=== PATIENT | female | born 1965 | race Caucasian/White ===

== ENCOUNTER 2020-10-23 09:16 | Day surgery (SDC) | payer OTHER, SELFPAY ==
[2020-10-17 15:06] VITALS: BMI 34.8
--- NOTE | 2020-10-20 09:54 | HO.ANESPROP2 ---
HPI - Anesthesia Eval Consult details Narrative: 55yo F for Colonoscopy PMFSH Past Medical History Medical History Asthma HTN (hypertension) Hx of benign breast biopsy Hyperlipidemia Obese Smoker Urinary incontinence Surgical History Surgical History Hx of colonoscopy Hx of tubal ligation Social History Social History Smoking Status: Current every day smoker Packs Per Day: 0.75 Cigarettes Per Day: 15.0 Advance Directives: No Advance Directives Information Provided: No Advance Directives on File: No Meds Allergies Allergy/AdvReac Type Severity Reaction Status Date / Time Sulfa (Sulfonamide Allergy Intermediate HIVES Verified 10/23/20 09:48 Antibiotics) [SULFA (SULFONAMIDE ANTIBIOTICS)] Home Medications Medication Instructions Recorded Confirmed Type albuterol sulfate 2 puff PO Q6H PRN 09/21/20 10/17/20 History atorvastatin 1 tab PO DAILY 09/21/20 10/17/20 History lisinopril 1 tab PO DAILY 09/21/20 10/17/20 History mometasone [Asmanex Twisthaler] 1 puff INHALATION DAILY 09/21/20 10/17/20 History umeclidinium-vilanterol [Anoro 1 puff INHALATION DAILY 09/21/20 10/17/20 History Ellipta] Exam Exam Date and Time: October 20, 2020 0954 Height,Weight and Vital Signs: Height 5 ft 4.5 in Weight 93.44 kg Pertinent Lab Results Pertinent Lab Results: Laboratory Tests 01/15/20 07/25/20 08:12 09:32 WBC 6.2 Hgb 15.2 Hct 45.0 Plt Count 211 Sodium 141 Potassium 4.0 Chloride 106 BUN 12 Creatinine 0.81 Assessment and Plan Assessment Anesthesia Assessment: Chart Reviewed
[2020-10-23 09:42] VITALS: BP 135/81; PULSE 98; RESP 18; TEMP 36; O2SAT 97
[2020-10-23] MEDS: Lactated Ringers 1,000 ML 100 ML IVCONT (09:51)
[2020-10-23 11:03] VITALS: BP 120/65; PULSE 77; RESP 16; TEMP 36.1; O2SAT 99
--- NOTE | 2020-10-23 11:03 | PM.OP ---
Brief Operative Note Date of Service: 10/23/20 Pre-op diagnosis: Screening, Hx of colon polyps Procedure: Colonoscopy to the cecum and TI with biopsy and removal of polyps Surgeon: Zane Reese Anesthesia: MAC Estimated blood loss (mL): 3.0 Pathology: other (A. Ascending colon polyps B. Sigmoid colon polyps C. Rectal polyps) Condition: stable Disposition: PACU
[2020-10-23 11:18] VITALS: BP 123/69; PULSE 71; RESP 16; O2SAT 99
[2020-10-23 11:33] VITALS: BP 112/76; PULSE 99; RESP 16; TEMP 36.1; O2SAT 99
--- NOTE | 2020-10-23 13:51 | HO.POSTANES ---
Post Anesthesia Evaluation Post Anesthesia Evaluation Vital Signs: Vital Signs Temp Pulse Resp BP Pulse Ox 10/23/20 11:33 97.0 F 99 16 112/76 99 10/23/20 11:18 71 16 123/69 99 10/23/20 11:03 97 F 77 16 120/65 99 10/23/20 09:42 96.8 F 98 18 135/81 97 Anesthesia: Monitored Mental Status: Awake Pain Control: Satisfactory Nausea/Vomiting: None Hydration: Adequate Anesthesia-Related Issues: No Anes. Related Issues
--- NOTE | 2020-10-23 21:09 | OP_ITS ---
SURGEON: Zane Reese MD INDICATIONS: The patient presents for evaluation of colorectal cancer screening and personal history of tubular adenoma of the colon. Full consent has been obtained from her from her for this, including risks of bleeding and perforation. PREOPERATIVE DIAGNOSIS: Colorectal cancer screening and personal history of tubular adenoma of the colon. POSTOPERATIVE DIAGNOSIS: Colorectal cancer screening and personal history of tubular adenoma of the colon, small colon polyps, diverticulosis, and internal hemorrhoids. PROCEDURE PERFORMED: Colonoscopy to the cecum and terminal ileum with biopsy and removal of polyps. ESTIMATED BLOOD LOSS: COMPLICATIONS: ANESTHESIA: Monitored anesthesia care. ASSISTANTS: SPECIMENS: DESCRIPTION OF PROCEDURE: The patient was placed in the left lateral decubitus position. The digital rectal exam revealed no abnormalities. The Olympus video pediatric colonoscope was entered into the rectum and advanced easily to the cecum. Once in the cecum I did identify normal-appearing cecal pouch with appendiceal orifice and a normal-appearing ileocecal valve. The terminal ileum was cannulated and appeared normal. The scope was withdrawn back in the colon. The entire cecum and ileocecal valve appeared normal. The scope was slowly withdrawn assessing all mucosal surfaces carefully. Preparation was excellent. In the ascending colon, sigmoid colon, and rectum were multiple flat, less than 5 mm possible hyperplastic polyps which were all biopsied and completely removed with cold biopsy forceps. There were some similar polyps in the rectum and sigmoid, which were not biopsied due to multiple number of them, but again they all appeared to be hyperplastic. There was a mild amount of sigmoid diverticulosis. I did not visualize any other polyps, colitis, nor angiodysplasia. In the rectum, scope was retroflexed visualizing internal hemorrhoids, but no other pathology. The rectal mucosa appeared normal. The scope was straightened and withdrawn from the patient. She tolerated procedure well and was returned to the recovery area in stable condition. IMPRESSION: 1. Small colon polyps, status post biopsy removal. 2. Diverticulosis. 3. Internal hemorrhoids. PLAN: The results of biopsy will be checked. I would recommend a repeat colonoscopy in 5 years for further surveillance. She will otherwise see me on a p.r.n. basis. MD LISA Zapata/JUANITA / [id number]
== END 2020-10-23 12:05 | disposition home or self-care (01) ==
PROVIDERS: PCP Internal Medicine; Visit Provider Internal Medicine
PROC: 0DJD8ZZ Inspection of Lower Intestinal Tract, Via Natural or Artificial Opening Endoscopic (ICD-10-PCS; CPT 45378; principal; 2020-10-23 10:40)
DX: Z12.11 Encounter for screening for malignant neoplasm of colon (principal); D12.2 Benign neoplasm of ascending colon; K63.5 Polyp of colon; K62.1 Rectal polyp; K57.30 Diverticulosis of large intestine without perforation or abscess without bleeding; K64.8 Other hemorrhoids; Z86.010 Personal history of colon polyps
CPT/HCPCS: 45380; 88305

== ENCOUNTER 2021-03-17 08:46 | Outpatient (REF) | payer OTHER, SELFPAY ==
[2021-03-17 14:00] LABS: Glucose Urine UA NEG (NEG); Leukocyte Esterase Urine NEG (NEG); Nitrite Urine NEG (NEG); PH 6.5 (5.0-8.0); Urine Blood 1+ (NEG); Urine Ketones NEG (NEG); Urine Protein NEG (NEG-TRACE)
[2021-03-17 14:01] LABS: Appearance Urine HAZY; Color Urine YELLOW; Hematocrit 45.1 % (37-47); Hemoglobin 14.6 g/dl (12.0-16.0); Mean Corpuscular HGB Conc 32.4 g/dl (31.0-35.0); Mean Corpuscular Hemoglobin 33.1 pg (27.0-33.0); Mean Corpuscular Volume 102.3 fL (80-98); Mean Platelet Volume 9.7 fL (9.4-12.3); Platelet Count 235 X10*3/uL (160-400); Red Blood Count 4.41 X10*6/uL (4.20-5.50); Red Cell Distribution Width 12.6 % (11.0-16.0); White Blood Count 5.9 X10*3/uL (4.8-10.8)
[2021-03-17 14:09] LABS: Bacteria Urine 4+ /LPF; Squamous Epithelial Cell Urine 4+ /LPF
[2021-03-17 14:23] LABS: Alanine Aminotransferase 20 U/L (0-31); Albumin Level 4.2 g/dL (3.5-5.0); Alkaline Phosphatase 104 U/L (39-117); Anion Gap 13 (12-20); Aspartate Amino Transferase 14 U/L (5-31); Bilirubin Total 0.6 mg/dL (0.0-1.0); Blood Urea Nitrogen 11 mg/dL (9-16); Calcium 9.1 mg/dL (8.4-10.2); Carbon Dioxide 28 mmol/L (22-29); Chloride 106 mmol/L (96-108); Cholesterol 166 mg/dL; Estimated Glomerular Filt Rate > 60; Glucose Fasting 94 mg/dL (60-99); HDL Cholesterol 57 mg/dL; LDL Cholesterol Calculated 88 mg/dl; Potassium 4.7 mmol/L (3.3-5.1); Sodium 142 mmol/L (135-145); Total Protein 6.8 g/dL (6.5-8.0); Triglycerides 105 mg/dL
[2021-03-17 14:44] LABS: Thyroid Stimulating Hormone 0.97 uIU/mL (0.32-4.0)
== END 2021-03-17 08:47 | disposition home or self-care (01) ==
LOC: HO.HMGCLDS 08:46
PROVIDERS: PCP Internal Medicine; Visit Provider Internal Medicine
DX: E78.2 Mixed hyperlipidemia (principal); I10 Essential (primary) hypertension; J42 Unspecified chronic bronchitis
CPT/HCPCS: 36415; 80053; 80061; 81001; 81003; 83735; 84443; 85027

== ENCOUNTER 2021-03-27 08:56 | Outpatient (REF) | payer OTHER, SELFPAY ==
[2021-03-27 11:20] LABS: Urine Cytology See Pathology rpt
[2021-03-27 11:43] LABS: Glucose Urine UA NEG (NEG); Leukocyte Esterase Urine NEG (NEG); Nitrite Urine NEG (NEG); PH 5.5 (5.0-8.0); Specific Gravity - Urine 1.025 (1.005-1.025); Urine Blood 1+ (NEG); Urine Ketones NEG (NEG); Urine Protein NEG (NEG-TRACE)
[2021-03-27 11:44] LABS: Appearance Urine CLEAR; Color Urine YELLOW
[2021-03-27 12:02] LABS: Bacteria Urine 1+ /LPF; Squamous Epithelial Cell Urine 1+ /LPF
[2021-03-30 12:36] LABS: HPV mRNA E6/E7 Not Detected (Not Detected)
== END 2021-03-27 08:57 | disposition home or self-care (01) ==
LOC: HO.LAB 08:56
PROVIDERS: Visit Provider Internal Medicine
DX: Z12.4 Encounter for screening for malignant neoplasm of cervix (principal); Z11.51 Encounter for screening for human papillomavirus (HPV); R87.610 Atypical squamous cells of undetermined significance on cytologic smear of cervix (ASC-US); I10 Essential (primary) hypertension; R31.29 Other microscopic hematuria
CPT/HCPCS: 81001; 87624; 88112; 88142

== ENCOUNTER 2021-04-19 09:56 | Outpatient (REF) | payer OTHER, SELFPAY ==
--- NOTE | ~2021-04-19 | US_ITS ---
EXAMINATION: US RETROPERITONEAL COMPLETE (RENAL) CLINICAL INFORMATION: Other microscopic hematuria. COMPARISON: None TECHNIQUE: Real-time imaging of the kidneys and bladder. FINDINGS: RIGHT KIDNEY: 10.1 x 4.5 x 5.7 cm (SAG x AP x TRV). The kidney is normal in size, contour, and echogenicity. Renal cortical thickness is normal. No calculi or focal parenchymal lesions. No hydronephrosis. LEFT KIDNEY: 10.7 x 5.1 x 5.1 cm (SAG x AP x TRV). The kidney is normal in size, contour, and echogenicity. Renal cortical thickness is normal. No calculi or focal parenchymal lesions. No hydronephrosis. BLADDER: Well distended and normal. Bilateral ureteral jets are demonstrated. Prevoid bladder volume is 170 mL. Postvoid bladder volume is 4.5 mL. The liver appears echogenic. US/US retroperitoneal comp IMPRESSION: Unremarkable renal and bladder ultrasound.
--- NOTE | ~2021-04-19 | CT_ITS ---
EXAMINATION: CT CHEST SCREENING CLINICAL INFORMATION: Personal history of nicotine dependence. COMPARISON: Chest x-ray 10/02/2018. TECHNIQUE: Multidetector volumetric CT imaging of the chest is performed without contrast using low dose technique. Additional 2D coronal and sagittal reformatted images and axial 3D maximum intensity projection (MIP) images are generated on the CT workstation. This CT examination was performed using dose optimization techniques as appropriate, variously including the following: *Automated exposure control *Adjustment of mA and/or kV according to patient size (this includes techniques or standardized protocols for targeted exams where dose is matched to indication/reason for exam; i.e. extremities or head) *Use of iterative reconstruction technique DLP: 63 mGy-cm FINDINGS: LUNGS: The lungs are clear with no evidence of inflammation or nodules. There is a punctate 2 mm calcified nodule right lower lobe axial image 91/9. No additional nodule seen. There is no consolidation, mass or ground-glass density. MEDIASTINUM: The thyroid lobes are symmetrical and normal. The central trachea and the bronchi are widely patent. The heart size and great vessels are normal caliber. There are minimal coronary artery calcifications. There is no pericardial effusion. PLEURA: There is no pleural effusion. No pleural mass or thickening. AXILLA: There are small shotty lymph nodes seen in the axilla. The chest wall is unremarkable. UPPER ABDOMEN: Visualized liver, spleen, pancreas and bilateral adrenal glands are unremarkable. OSSEOUS STRUCTURES: No lytic or sclerotic process seen. There is mild ventral spondylosis. CT/CT lung screening IMPRESSION: Punctate 2 mm calcified nodule right lower lobe. No additional nodule seen. ASSESSMENT: Lung-RADS category 2: Benign RECOMMENDATION: Low dose annual CT chest.
== END 2021-04-19 09:57 | disposition home or self-care (01) ==
LOC: HO.US 09:56
PROVIDERS: Visit Provider Internal Medicine
DX: Z12.2 Encounter for screening for malignant neoplasm of respiratory organs (principal); R31.29 Other microscopic hematuria; Z87.891 Personal history of nicotine dependence
CPT/HCPCS: 71271; 76770

== ENCOUNTER 2021-07-22 08:17 | Emergency (ER) | payer OTHER, SELFPAY ==
--- NOTE | ~2021-07-22 | CT_ITS ---
EXAMINATION: CT LUMBAR SPINE WITHOUT CONTRAST CLINICAL INFORMATION: 56-year-old female with worsening lower back pain. COMPARISON: Chest CT from 04/19/2021. TECHNIQUE: Noncontrast multidetector CT imaging examination of the lumbar spine. Axial images are presented at 1.5 mm and 2 mm slice thickness. Coronal and sagittal reformatted images were generated and reviewed. This CT examination was performed using dose optimization techniques as appropriate, variously including the following: *Automated exposure control *Adjustment of mA and/or kV according to patient size (this includes techniques or standardized protocols for targeted exams where dose is matched to indication/reason for exam; i.e. extremities or head) *Use of iterative reconstruction technique DLP; 748 mGy-cm FINDINGS: No acute imaging abnormalities in the the examined lumbosacral spine. No vertebral compression fracture. No pars interarticularis defects. T12-L1 disc space is well-preserved. L1-L2, mild disc bulge. No significant narrowing of the spinal canal or neural foramina at this level. L2-L3, moderate loss of disc height, disc bulge, vacuum disc phenomenon, endplate sclerosis, vertebral osteophyte formation, and 0.3 cm of retrolisthesis of L2 on L3. The bulging disc produces mild indentation on the ventral surface of the thecal sac, causes mild canal stenosis and mild bilateral foraminal stenosis. No evidence of disc impingement upon the exiting L2 nerve roots. L3-L4, mild loss of disc height, mild disc bulge and approximately 0.2 cm of retrolisthesis of L3 on L4 resulting in mild narrowing of the central spinal canal. No significant narrowing of the neural foramina. L4-L5 and L5-S1 intervertebral disc spaces are maintained. Mild disc bulge at L4-L5 produces mild indentation on the ventral surface of the thecal sac. No significant narrowing of the spinal canal or foramina at the L4-L5 and L5-S1 levels. Moderate right-sided facet hypertrophy is noted at L5-S1. Sacrum and sacroiliac joints are intact. No sacral fracture. No focal lytic or osteoblastic lesion. The paraspinal soft tissues are normal. The visualized abdominal aorta has atherosclerotic calcification; no aneurysm or para-aortic lymphadenopathy. The kidneys are unremarkable; no nephrolithiasis or hydronephrosis. CT/CT lumbar spine wo con IMPRESSION: * No acute CT imaging abnormalities in the lumbosacral spine. No vertebral compression fractures. * Degenerative loss of disc height is moderate at L2-L3 and mild at L3-L4. There is mild retrolisthesis at L2-L3 and L3-L4. Otherwise, the lumbar vertebra have normal alignment. There is mild narrowing of the central spinal canal at L2-L3 and L3-L4. No evidence of high-grade canal stenosis or significant neural foraminal stenosis.
[2021-07-22 08:35] VITALS: BP 152/80; PULSE 69; RESP 18; TEMP 36.4; BMI 33.3
[2021-07-22] MEDS: Ketorolac Tromethamine 15 MG/ML VIAL 30 MG IM (09:08)
[2021-07-22] MEDS: Lidocaine 4 % Patch ADH..PATCH 1 PATCH TRANSDERMA (09:08)
[2021-07-22] MEDS: diazePAM 5 MG TABLET PO (09:09)
[2021-07-22 09:44] LABS: MANUAL DIFF FLAG NO
[2021-07-22 09:45] LABS: Basophils Percent Auto 0.4 % (0-2); Eosinophils Absolute Auto 0.1 X10*3/uL (0.0-0.4); Eosinophils Percent Auto 1.9 % (0-4); Hemoglobin 13.5 g/dl (12.0-16.0); Imm Gran Abs Auto 0.01 X10*3/uL (0.00-0.03); Imm Gran Pct Auto 0.1 % (0.0-0.4); Lymphocytes Absolute Auto 2.3 X10*3/uL (1.2-4.9); Lymphocytes Percent Auto 32.5 % (20-40); Mean Corpuscular HGB Conc 32.9 g/dl (31.0-35.0); Mean Corpuscular Volume 100.2 fL (80-98); Mean Platelet Volume 9.4 fL (9.4-12.3); Monocytes Absolute Auto 0.6 X10*3/uL (0.1-1.2); Monocytes Percent Auto 9.2 % (2-11); Neutrophils Absolute Auto 3.9 X10*3/uL (2.0-8.3); Neutrophils Percent Auto 55.9 % (45-73); Platelet Count 198 X10*3/uL (160-400); Red Blood Count 4.09 X10*6/uL (4.20-5.50); Red Cell Distribution Width 12.1 % (11.0-16.0)
[2021-07-22 09:52] LABS: Prothrombin Time 11.8 SEC (9.9-13.0)
[2021-07-22 10:02] LABS: Alanine Aminotransferase 16 U/L (0-31); Alkaline Phosphatase 93 U/L (39-117); Anion Gap 9 (12-20); Aspartate Amino Transferase 13 U/L (5-31); Bilirubin Total 0.4 mg/dL (0.0-1.0); Blood Urea Nitrogen 12 mg/dL (9-16); Calcium 9.6 mg/dL (8.4-10.2); Carbon Dioxide 26 mmol/L (22-29); Chloride 107 mmol/L (96-108); Creatinine Clr Calc Pharmacy 82.2; Estimated Glomerular Filt Rate > 60; Glucose Random 93 mg/dL (60-115); Magnesium 1.9 mg/dL (1.6-2.6); Potassium 4.3 mmol/L (3.3-5.1); Sodium 138 mmol/L (135-145); Total Protein 6.6 g/dL (6.5-8.0)
[2021-07-22 10:23] LABS: Influenza A PCR NEGATIVE (Negative); Influenza B PCR NEGATIVE (Negative); Resp Syncy Virus RNA Qual PCR NEGATIVE (Negative); SARS COV2 PCR INHOUSE NEGATIVE (Negative)
[2021-07-22 10:35] LABS: Appearance Urine HAZY; Color Urine YELLOW; Glucose Urine UA NEG (NEG); Leukocyte Esterase Urine NEG (NEG); Nitrite Urine POS (NEG); PH 5.5 (5.0-8.0); UACC Culture Trigger YES; Urine Blood 1+ (NEG); Urine Ketones NEG (NEG); Urine Protein NEG (NEG-TRACE)
--- NOTE | 2021-07-22 10:39 | ED_ITS ---
HPI - Back Pain/Injury General Chief Complaint: Back Pain/Injury Stated Complaint: back pain Time Seen by Provider: 07/22/21 08:32 Source: patient and family Mode of arrival: ambulatory Limitations: no limitations History of Present Illness HPI Narrative: 56-year-old female with a past medical history of obesity, hy pertension, hyperlipidemia, asthma, COPD, micro hematuria in urine and chronic back pain of unknown etiology presenting to the ED with complaints of acute on chronic back pain for the past week progressively worsening. She reports that she works at a [employer] and she feels like the past few days after work her back is in worsening pain. She reports that she has had 2 primary care providers in the past 10-20 years and she has told them about her back pain although she has never had any x-rays or CT scans or MRIs. She reports that she has had chronic right thigh numbness/burning sensation although this has been present for at least 5-10 years and she has told her primary care provider's a lthough they have never done any imaging-discussed above. She denies any fevers, chills, dizziness, headaches, chest pain, shortness of breath, palpitations, dyspnea exertion, orthopnea, radiation of the back pain, hematuria, black or bloody stools, dysuria, abnormal vaginal discharge, any weakness any trouble walking or any other symptoms complaints or concerns or recent injuries or falls. MD elicited complaint: back pain Pertinent past history: prior back pain Onset (ago): week(s) (For the past week worse today) Timing: constant and progressively worsening Severity: severe Pain scale (0-10): 10 Similar Symptoms Previously: Yes Quality: burning, aching, spasming and throbbing Location: lumbar spine Radiation: none Exacerbating factors: movement, walking and lifting Relieving factors: immobilization Context: while lifting, turning/twisting and bending Associated symptoms: denies other symptoms Treatments prior to arrival: NSAIDS and acetaminophen Work related injury: No Related Data Home Medications Medication Instructions Recorded Confirmed mometasone (Asmanex Twisthaler) 1 puff INHALATION DAILY 09/21/20 03/27/21 Previous Rx's Medication Instructions Recorded atorvastatin 40 mg tablet 40 mg PO DAILY #90 tab 11/29/20 lisinopril 5 mg tablet 5 mg PO DAILY #90 tab 11/29/20 albuterol sulfate 90 mcg/actuation 2 puff PO Q6H PRN #8.5 g 06/01/21 aerosol inhaler umeclidinium 62.5 mcg-vilanterol 1 ea INHALATION DAILY #180 cap 06/18/21 25 mcg/actuation powdr for inhalation (Anoro Ellipta) cefuroxime axetil 500 mg tablet 500 mg PO BID 7 Days #14 tab 07/22/21 diazepam 5 mg tablet (Valium) 5 mg PO TID PRN #14 tab 07/22/21 lidocaine HCl 4 % topical cream 1 appl TOPICAL BID PRN #120 g 07/22/21 (Aspercreme (lidocaine HCl)) naproxen 500 mg tablet 500 mg PO BID PRN #10 tab 07/22/21 Allergies Allergy/AdvReac Type Severity Reaction Status Date / Time Sulfa (Sulfonamide Allergy Intermediate HIVES Verified 03/27/21 07:58 Antibiotics) [SULFA (SULFONAMIDE ANTIBIOTICS)] Review of Systems Review of Systems: Constitutional : No trauma, No Weight loss, No Fever, No Chills, ENT/Mouth : No Hearing loss, No Ear Pain, No Nasal Congestion, No Sinus Pain, No Hoarseness, No sore throat, No Rhinorrhea, No Swallowing Difficulty Cardiovascular : No Chest Pain, No SOB Respiratory : No Cough, No Dyspnea Gastrointestinal : No Nausea, No Vomiting, No Diarrhea, No abdominal Pain, No Hematochezia, No Melena Genitourinary : No Dysuria, No Urinary Frequency, No Hematuria, No Urinary or Bowel Incontinence/retention Musculoskeletal : Positive Back pain, No neck pain, No joint stiffness, No joint swelling Skin : No Skin Lesions, No rash or signs of infection Neuro : Positive right thigh chronic numbness/burning sensation, no additional/new numbness, No Weakness, No radiation, No Paresthesias, No headache, no loss of bowel or bladder incontinence, no saddle anesthesia, Focal weakness, No radiation Denies history of IV drug usage. Yes all other systems are reviewed and are negative [facility] Past Medical History Attestation statement: The following information was validated with the patient. Medical History Asthma COPD (chronic obstructive pulmonary disease) HTN (hypertension) Hyperlipidemia Mammogram normal Microhematuria Obese Pap smear abnormality of cervix with ASCUS favoring benign Personal history of nicotine dependence Urinary incontinence Surgical History Hx of benign breast biopsy (~2005) Hx of colonoscopy Hx of tubal ligation Family History Family History Father COPD (chronic obstructive pulmonary disease) Mother HTN (hypertension) Diabetes Social History Social History Alcohol intake: current Alcohol intake frequency: does not drink Cigarette Packs Per Day: 0.75 Cigarettes Per Day: 15.0 Years Smoked: 42 (onset 11) Advance Directives: No Advance Directives Information Provided: No Physical Exam Vital Signs: Vital Signs: Last Vital Signs Temp 97.6 F 07/22/21 08:35 Pulse 69 07/22/21 08:35 Resp 18 07/22/21 08:35 BP 152/80 H 07/22/21 08:35 Body Mass Index 33.3 vital signs have been reviewed as normal and appeared to be correct. Blood pre ssure normal. Heart rate normal. Respiration rate normal. Temperature normal. Oxygen saturation normal. Appearance: Alert. Oriented X3. No acute distress. Head: Normal external exam. Normocephalic. Atraumatic. No Yip signs noted. No raccoon eyes noted Eyes: PERRLA. EOMI. Conjunctiva and sclera normal. Eyelids normal. ENT: EAC normal. TM's Normal. Pharynx normal. Uvula midline. Moist mucous membranes. No trismus noted. No drooling noted. No muffled voice noted. Neck: Normal inspection. Neck supple. FROM. No adenopathy. Thyroid Normal. No meningeal signs. No neck mass noted. CVS: Normal heart rate and rhythm. Heart sound normal. No murmurs noted. Pulses normal throughout. Respiratory: No respiratory distress. Painless inspiration. Breath sounds norm al. No wheezes/rales/rhonchi noted. Chest nontender. No accessory muscle usage noted or decreased air movement noted. Abdomen: Soft and nontender. Bowel sounds normal in all 4 quadrants. No distenti on noted. No organomegaly noted. No visible injury noted. Back: No CVA tenderness. Full range of motion noted. No obvious deformities, or edema. Mild para-spinal muscular tenderness from lumbar region to coccyx. Full ROM in back and lower extremities. 5/5 strength hip extension/flexion, abduction , adduction. Mild Lumbar pain with hip flexion against resistance. Straight leg raise test negative on right; Straight leg raise test negative on left; Reflexes normal ankle and knee bilaterally; EHL motor strength normal bilaterally. No rashes/lesion/induration/fluctuance or signs infection noted. Skin: Skin warm and dry. Normal skin color. Normal skin turgor. No rashes/lesions/lacerations noted. Extremities: No lower extremity edema. Extremities exhibit normal range of motion. Extremities nontender. Neuro: Oriented X 3. No motor deficit. No sensory deficit. Reflexes normal. Patient has a normal steady gait. Course Course Course Narrative: Pt c likely muscular pain, but could be herniated disc. Neuro exam shows no deficits. Not c/w AAA/epidural abscess/dissection.No high risk Hx (Incont, fever, immunosupp, recent surgery/LP, coag, signif trauma, wt loss, puls mass, hx/o Ca, TB, or IVDU) to warrant MRI. Although due to patient never having imaging and having back pain for at least 20 years with right thigh numbness/burning sensation will obtain a CT scan of lumbar spine without contrast to evaluate an etiology of the patient's chronic back pain as she has never had imaging. Therefore CT scan of lumbar spine was obtained revealed multiple chronic changes therefore I printed out a copy of her results given to the patient and told her to bring that to her primary care provider so her primary care provider can refer her to pain management or physical therapy or a neurosurgeon. Not c/w Pyelo/UTI/kidney stone/spinal fx. Not cauda equina syndrome. Therefore patient was given Valium and naproxen and a Lidoderm patch and she reports moderate symptomatic relief and she reports that she would like to go home with same treatment. I explained to the patient that she also has urinary tract infection therefore was start her on an antibiotic for UTI. Otherwise all her other labs were within normal limits. She was also negative for COVID/RSV/flu. Will DC home with symptomatic treatment antibiotics for UTI and instructions return if any new or worsening symptoms follow-up with primary care provider. Patient understands agrees with this plan. MDM - Back Pain/Injury Medical Records Attestation: I reviewed the patient's medical records. Lab Data Attestation: I reviewed the patient's lab results. Result diagrams: 07/22/21 09:35 07/22/21 09:35 Labs: Lab Results 07/22/21 07/22/21 07/22/21 Range/Units 09:35 09:35 09:35 WBC 7.0 (4.8-10.8) X10*3/uL RBC 4.09 L (4.20-5.50) X10*6/uL Hgb 13.5 (12.0-16.0) g/dl Hct 41.0 (37-47) % MCV 100.2 H (80-98) fL MCH 33.0 (27.0-33.0) pg MCHC 32.9 (31.0-35.0) g/dl RDW 12.1 (11.0-16.0) % Plt Count 198 (160-400) X10*3/uL MPV 9.4 (9.4-12.3) fL Immature Gran % (Auto) 0.1 (0.0-0.4) % Neut % (Auto) 55.9 (45-73) % Lymph % (Auto) 32.5 (20-40) % Dooly % (Auto) 9.2 (2-11) % Eos % (Auto) 1.9 (0-4) % Baso % (Auto) 0.4 (0-2) % Lymph # (Auto) 2.3 (1.2-4.9) X10*3/uL Dooly # (Auto) 0.6 (0.1-1.2) X10*3/uL Eos # (Auto) 0.1 (0.0-0.4) X10*3/uL Baso # (Auto) 0.0 (0.0-0.2) X10*3/uL Abs Immat Gran (auto) 0.01 (0.00-0.03) X10*3/uL Absolute Neuts (auto) 3.9 (2.0-8.3) X10*3/uL Absolute Nucleated RBC 0.000 (0.0-0.012) X10*3/uL Nucleated RBC % (auto) 0.0 (0.0-0.2) /100WBC PT 11.8 (9.9-13.0) SEC INR 1.0 (0.9-1.1) Sodium 138 (135-145) mmol/L Potassium 4.3 (3.3-5.1) mmol/L Chloride 107 (96-108) mmol/L Carbon Dioxide 26 (22-29) mmol/L Anion Gap 9 L (12-20) BUN 12 (9-16) mg/dL Creatinine 0.83 (0.5-1.4) mg/dL Estim Creat Clear Calc 82.2 Estimated GFR > 60 Random Glucose 93 (60-115) mg/dL Calcium 9.6 (8.4-10.2) mg/dL Magnesium 1.9 (1.6-2.6) mg/dL Total Bilirubin 0.4 (0.0-1.0) mg/dL AST 13 (5-31) U/L ALT 16 (0-31) U/L Alkaline Phosphatase 93 (39-117) U/L Total Protein 6.6 (6.5-8.0) g/dL Albumin 4.0 (3.5-5.0) g/dL Urine Color Urine Appearance Urine pH (5.0-8.0) Ur Specific Snyder (1.005-1.025) Urine Protein (NEG-TRACE) MG/DL Urine Glucose (UA) (NEG) MG/DL Urine Ketones (NEG) MG/DL Urine Blood (NEG) Urine Nitrite (NEG) Ur Leukocyte Esterase (NEG) Coronavirus (PCR) (Negative) Influenza Type A (PCR) (Negative) Influenza Type B (PCR) (Negative) RSV RNA Qual (PCR) (Negative) 07/22/21 07/22/21 Range/Units 09:35 10:24 WBC (4.8-10.8) X10*3/uL RBC (4.20-5.50) X10*6/uL Hgb (12.0-16.0) g/dl Hct (37-47) % MCV (80-98) fL MCH (27.0-33.0) pg MCHC (31.0-35.0) g/dl RDW (11.0-16.0) % Plt Count (160-400) X10*3/uL MPV (9.4-12.3) fL Immature Gran % (Auto) (0.0-0.4) % Neut % (Auto) (45-73) % Lymph % (Auto) (20-40) % Dooly % (Auto) (2-11) % Eos % (Auto) (0-4) % Baso % (Auto) (0-2) % Lymph # (Auto) (1.2-4.9) X10*3/uL Dooly # (Auto) (0.1-1.2) X10*3/uL Eos # (Auto) (0.0-0.4) X10*3/uL Baso # (Auto) (0.0-0.2) X10*3/uL Abs Immat Gran (auto) (0.00-0.03) X10*3/uL Absolute Neuts (auto) (2.0-8.3) X10*3/uL Absolute Nucleated RBC (0.0-0.012) X10*3/uL Nucleated RBC % (auto) (0.0-0.2) /100WBC PT (9.9-13.0) SEC INR (0.9-1.1) Sodium (135-145) mmol/L Potassium (3.3-5.1) mmol/L Chloride (96-108) mmol/L Carbon Dioxide (22-29) mmol/L Anion Gap (12-20) BUN (9-16) mg/dL Creatinine (0.5-1.4) mg/dL Estim Creat Clear Calc Estimated GFR Random Glucose (60-115) mg/dL Calcium (8.4-10.2) mg/dL Magnesium (1.6-2.6) mg/dL Total Bilirubin (0.0-1.0) mg/dL AST (5-31) U/L ALT (0-31) U/L Alkaline Phosphatase (39-117) U/L Total Protein (6.5-8.0) g/dL Albumin (3.5-5.0) g/dL Urine Color YELLOW Urine Appearance HAZY Urine pH 5.5 (5.0-8.0) Ur Specific Snyder 1.010 (1.005-1.025) Urine Protein NEG (NEG-TRACE) MG/DL Urine Glucose (UA) NEG (NEG) MG/DL Urine Ketones NEG (NEG) MG/DL Urine Blood 1+ H (NEG) Urine Nitrite POS H (NEG) Ur Leukocyte Esterase NEG (NEG) Coronavirus (PCR) NEGATIVE (Negative) Influenza Type A (PCR) NEGATIVE (Negative) Influenza Type B (PCR) NEGATIVE (Negative) RSV RNA Qual (PCR) NEGATIVE (Negative) Imaging Data Lumbar spine CT scan without contrast: Attestation: I personally reviewed and interpreted this imaging study as follows: Radiologist's impression: FINDINGS: No acute imaging abnormalities in the the examined lumbosacral spine. No vertebral compression fracture. No pars interarticularis defects. T12-L1 disc space is well-preserved. L1-L2, mild disc bulge. No significant narrowing of the spinal canal or neural foramina at this level. L2-L3, moderate loss of disc height, disc bulge, vacuum disc phenomenon, endplate sclerosis, vertebral osteophyte formation, and 0.3 cm of retrolisthesis of L2 on L3. The bulging disc produces mild indentation on the ventral surface of the thecal sac, causes mild canal stenosis and mild bilateral foraminal stenosis. No evidence of disc impingement upon the exiting L2 nerve roots. L3-L4, mild loss of disc height, mild disc bulge and approximately 0.2 cm of retrolisthesis of L3 on L4 resulting in mild narrowing of the central spinal canal. No significant narrowing of the neural foramina. L4-L5 and L5-S1 intervertebral disc spaces are maintained. Mild disc bulge at L4-L5 produces mild indentation on the ventral surface of the thecal sac. No significant narrowing of the spinal canal or foramina at the L4-L5 and L5-S1 levels. Moderate right-sided facet hypertrophy is noted at L5-S1. Sacrum and sacroiliac joints are intact. No sacral fracture. No focal lytic or osteoblastic lesion. The paraspinal soft tissues are normal. The visualized abdominal aorta has atherosclerotic calcification; no aneurysm or para-aortic lymphadenopathy. The kidneys are unremarkable; no nephrolithiasis or hydronephrosis. CT/CT lumbar spine wo con IMPRESSION: *? No acute CT imaging abnormalities in the lumbosacral spine. No vertebral compression fractures. *? Degenerative loss of disc height is moderate at L2-L3 and mild at L3-L4. There is mild retrolisthesis at L2-L3 and L3-L4. Otherwise, the lumbar vertebra have normal alignment. There is mild narrowing of the central spinal canal at L2-L3 and L3-L4. No evidence of high-grade canal stenosis or significant neural foraminal stenosis. Discharge Plan Discharge Clinical Impression: Microhematuria, UTI (urinary tract infection), Retrolisthesis of vertebrae, Bulging lumbar disc, Back pain Patient Disposition: Home, Self-Care Instructions: Hematuria (ED), Back Pain (ED), Spondylolisthesis (ED), Urinary Tract Infection in Older Adults (ED) Prescriptions: New diazepam [Valium] 5 mg tablet 5 mg PO TID PRN (Reason: muscle spasm) Qty: 14 RF: 0 lidocaine HCl [Aspercreme (lidocaine HCl)] 4 % cream 1 appl topical BID PRN (Reason: pain) Qty: 120 RF: 0 naproxen 500 mg tablet 500 mg PO BID PRN (Reason: pain) Qty: 10 RF: 0 cefuroxime axetil 500 mg tablet 500 mg PO BID 7 Days Qty: 14 RF: 0 No Action atorvastatin 40 mg tablet 40 mg PO DAILY Qty: 90 RF: 2 lisinopril 5 mg tablet 5 mg PO DAILY Qty: 90 RF: 3 albuterol sulfate 90 mcg/actuation HFA aerosol inhaler 2 puff PO Q6H PRN (Reason: Wheezing) Qty: 8.5 RF: 5 Anoro Ellipta 62.5-25 mcg/actuation blister with device 1 ea inhalation DAILY Qty: 180 RF: 3 Asmanex Twisthaler 110 mcg/ actuation (30) aerosol powdr breath activated 1 puff inhalation DAILY RF: 0 Referrals: Susan Gusman MD [Primary Care Provider] - 2 days Stand Alone Forms: Work/School Release Print Language: Korean
[2021-07-22 10:50] LABS: Bacteria Urine 2+ /LPF; WBC Urine 0-2 /HPF (0-4)
[2021-07-22 10:51] LABS: RBC Urine 0 /HPF (0); Squamous Epithelial Cell Urine 1+ /LPF
[2021-07-22 11:25] VITALS: BP 133/66; PULSE 110; RESP 19; O2SAT 98
== END 2021-07-22 11:28 | disposition home or self-care (01) ==
PROVIDERS: Physician Assistant Medical; Emergency Provider Emergency Medicine; PCP Internal Medicine
DX: R31.9 Hematuria, unspecified (principal); N39.0 Urinary tract infection, site not specified; M43.19 Spondylolisthesis, multiple sites in spine; M54.5 Low back pain; F17.210 Nicotine dependence, cigarettes, uncomplicated; Z20.822 Contact with and (suspected) exposure to COVID-19; Z71.6 Tobacco abuse counseling; Z79.899 Other long term (current) drug therapy
CPT/HCPCS: 0241U; 36415; 72131; 80053; 81001; 83735; 85025; 85610; 87086; 96372; 99284; J1885

== ENCOUNTER 2021-09-29 12:57 | Emergency (ER) | payer OTHER, SELFPAY ==
--- NOTE | 2021-09-29 | ECG_ITS ---
Test Reason : cp Blood Pressure : / mmHG Vent. Rate : 070 BPM Atrial Rate : 070 BPM P-R Int : 154 ms QRS Dur : 122 ms QT Int : 440 ms P-R-T Axes : 071 -54 084 degrees QTc Int : 475 ms Normal sinus rhythm Left axis deviation Left bundle branch block Abnormal ECG When compared with ECG of 02-OCT-2018 21:35, Vent. rate has decreased BY 39 BPM Left bundle branch block is now Present Referred By: Generic ED Physician Electronically Signed By:DANE BACON MD
--- NOTE | ~2021-09-29 | XR_ITS ---
EXAMINATION: XR CHEST CLINICAL INFORMATION: Difficulty breathing COMPARISON: 10/02/2018 TECHNIQUE: Frontal view of the chest was obtained. FINDINGS: No significant abnormality is noted involving the heart, lungs, mediastinum, bony thorax or soft tissues. XR/XR chest 1V IMPRESSION: Unremarkable examination.
[2021-09-29 13:03] VITALS: BP 134/77; PULSE 78; RESP 20; TEMP 36.4; O2SAT 98; BMI 33.3
--- NOTE | 2021-09-29 14:24 | ED.SOB ---
HPI - SOB/Dyspnea General Chief Complaint: Dyspnea Stated Complaint: diff breathing, runny nose, scratchy throat Time Seen by Provider: 09/29/21 14:24 Source: patient Mode of arrival: ambulatory Limitations: no limitations History of Present Illness HPI Narrative: 56 y/o female with history of COPD, HTN, obesity, asthma, HLD, active smoker, and anxiety who presents to the ER with 1 week of runny nose, sneezing, fatigue and intermittent difficulty breathing. She reports overall she is feeling better however she continues to feel very tired and dyspneic after walking. She reports baseline she gets short of breath and fatigued when walking up stairs and when walking long distances, but these occurrences but have been happening more frequently since she has been sick. She reports her son is home sick with a cold. she has not had any fever or chills, no chest pain. She has a dry cough that is chronic. She is unable to bring up any phlegm. She has been taking her inhalers except she ran out of 1 of them that is due to be picked up at the pharmacy. She has been using her albuterol inhaler as needed with improvement. MD elicited complaint: shortness of breath and cough Pertinent past history: COPD and asthma Onset (ago): day(s) (7) Context: occurred during exertion Timing: intermittent Severity: moderate Exacerbating factors: exertion and coughing Relieving factors: rest and bronchodilators Known history of: COPD and asthma Associated symptoms: cough and chest congestion Treatment prior to arrival: none Related Data Home oxygen amount: none Home Medications Medication Instructions Recorded Confirmed mometasone (Asmanex Twisthaler) 1 puff INHALATION DAILY 09/21/20 03/27/21 Previous Rx's Medication Instructions Recorded lisinopril 5 mg tablet 5 mg PO DAILY #90 tab 11/29/20 albuterol sulfate 90 mcg/actuation 2 puff PO Q6H PRN #8.5 g 06/01/21 aerosol inhaler umeclidinium 62.5 mcg-vilanterol 1 ea INHALATION DAILY #180 cap 06/18/21 25 mcg/actuation powdr for inhalation (Anoro Ellipta) cefuroxime axetil 500 mg tablet 500 mg PO BID 7 Days #14 tab 07/22/21 diazepam 5 mg tablet (Valium) 5 mg PO TID PRN #14 tab 07/22/21 lidocaine HCl 4 % topical cream 1 appl TOPICAL BID PRN #120 g 07/22/21 (Aspercreme (lidocaine HCl)) naproxen 500 mg tablet 500 mg PO BID PRN #10 tab 07/22/21 atorvastatin 40 mg tablet 40 mg PO DAILY #90 tab 09/20/21 azithromycin 250 mg tablet See Rx Instructions .ROUTE 09/29/21 (Zithromax Z-Toni) .COMPLEX #6 tab prednisone 20 mg tablet 40 mg PO DAILY #10 tab 09/29/21 Allergies Allergy/AdvReac Type Severity Reaction Status Date / Time Sulfa (Sulfonamide Allergy Intermediate HIVES Verified 03/27/21 07:58 Antibiotics) [SULFA (SULFONAMIDE ANTIBIOTICS)] Review of Systems Review of Systems: Constitutional: No Fever, No Chills ENT/Mouth: + sore throat, + Rhinorrhea, No Swallowing Difficulty Eyes: No Eye Pain, No Swelling, No Redness Cardiovascular: No Chest Pain, + SOB, No Orthopnea, No Edema Respiratory: + Cough, No Sputum, No Wheezing, + dyspnea Gastrointestinal: No Nausea, No Vomiting, No Diarrhea, No abdominal Pain Genitourinary: No Dysuria, No Urinary Frequency, No Hematuria Musculoskeletal: No joint pain, + Myalgias Skin: No Skin Lesions, No rash Neuro: No Weakness, No Numbness, No Dizziness, + Headache Psych: + Anxiety/Panic, No Depression Heme/Lymph: No Bruising, No Lymphadenopathy PMFSH Past Medical History Medical History Asthma COPD (chronic obstructive pulmonary disease) HTN (hypertension) Hyperlipidemia Mammogram normal Microhematuria Obese Pap smear abnormality of cervix with ASCUS favoring benign Personal history of nicotine dependence Urinary incontinence Surgical History Hx of benign breast biopsy (~2005) Hx of colonoscopy Hx of tubal ligation Family History Family History Father COPD (chronic obstructive pulmonary disease) Mother HTN (hypertension) Diabetes Social History Social History Alcohol intake: never Patient Tobacco Use Status: Current everyday Tobacco user Cigarette Packs Per Day: 0.75 Cigarettes Per Day: 15.0 Years Smoked: 44 (onset 11) Use of substances other than those prescribed or required for medical reasons: No Advance Directives: No Advance Directives Information Provided: Yes Patient : No Physical Exam Vital Signs: Vital Signs: Last Vital Signs Temp 97.7 F 09/29/21 14:58 Pulse 68 09/29/21 14:58 Resp 18 09/29/21 14:58 BP 133/81 09/29/21 14:58 Pulse Ox 99 09/29/21 14:58 Body Mass Index 33.3 Appearance: Alert. Oriented X3. No acute distress. Eyes: Pupils equal, round and reactive to light. ENT: Pharynx normal. Neck: Normal inspection. Neck supple. CVS: Normal heart rate and rhythm. Pulses normal. Respiratory: No respiratory distress. Breath sounds normal throughout right lung, coarse with rhonchi in LLL. Abdomen: Obese, Soft and nontender. +BS x4 Skin: Skin warm and dry. Normal skin color. Normal skin turgor. No rashes. Extremities: No lower extremity edema. No calf tenderness. Neuro: Oriented X 3. No motor deficit. No sensory deficit. Course Course Course Narrative: 48-year-old female with a history of COPD/asthma who is an active smoker presents to the ER with dyspnea on exertion, fatigue, runny nose, scratchy throat in the setting of sick contact from her son. She is vaccinated for COVID-19. her vital signs are normal on arrival. She is nontoxic-appearing no respiratory distress. Her lungs have no wheezing, but some coarseness and scattered rhonchi in the left lower lobe. Will get a chest x-ray and COVID swab. Will also get EKG. Doubt ACS or PE. Her clinical presentation is consistent with a viral infection. Reevaluation(s) Reevaluation #1: EKG showing old left bundle-branch block. no ST segment elevations or depressions. She continues to deny chest pain Her chest x-ray is clear no COVID swab is negative. Given her known exposure to her son who is ill, her shortness of breath is most likely due to infectious process. Will treat for acute bronchitis with a Z-Toni and prednisone. She will follow up with her primary care doctor next week. She is stable for discharge home with supportive care. Warning signs return to the ER were discussed. MDM - SOB/Dyspnea Differential Diagnosis Differential diagnosis: Likely acute exacerbation of chronic obstructive airways disease, congestive heart failure, pneumonia, asthma with exacerbation, pulmonary embolism, pleural effusion, sleep apnea and anemia Lab Data Attestation: I reviewed the patient's lab results. Labs: Lab Results 09/29/21 Range/Units 14:42 COVID-19 ([facility]) Negative (Negative) COVID-19 Clin Com See Note ECG Data Attestation: I personally reviewed and interpreted this ECG as follows: ECG interpretation date: 09/29/21 ECG interpretation time: 15:50 Prior ECG tracings: available for review Interpretation: Normal sinus rhythm, heart rate 70 beats per minute, normal CA interval, left bundle-branch block which is old compared to 2019; no ST segment elevations Critical Care Time Critical Care Time Critical Care Time: No Discharge Plan Discharge Clinical Impression: Bronchitis Patient Disposition: Home, Self-Care Instructions: Acute Bronchitis (ED) Additional Instructions: Your chest x-ray was clear. Your COVID test was negative. Take the prescribed antibiotic and prednisone for acute bronchitis. Recommend over the counter Mucinex 1200 mg every 12 hours for the next 5 days. Do your best to cut back on smoking. Follow up with your doctor next week. If you develop new or worsening symptoms call 911 or come back to the ER for further evaluation. Prescriptions: New azithromycin [Zithromax Z-Toni] 250 mg tablet See Rx Instructions .ROUTE .COMPLEX Qty: 6 RF: 0 prednisone 20 mg tablet 40 mg PO DAILY Qty: 10 RF: 0 No Action lisinopril 5 mg tablet 5 mg PO DAILY Qty: 90 RF: 3 albuterol sulfate 90 mcg/actuation HFA aerosol inhaler 2 puff PO Q6H PRN (Reason: Wheezing) Qty: 8.5 RF: 5 Anoro Ellipta 62.5-25 mcg/actuation blister with device 1 ea inhalation DAILY Qty: 180 RF: 3 atorvastatin 40 mg tablet 40 mg PO DAILY Qty: 90 RF: 3 Asmanex Twisthaler 110 mcg/ actuation (30) aerosol powdr breath activated 1 puff inhalation DAILY RF: 0 diazepam [Valium] 5 mg tablet 5 mg PO TID PRN (Reason: muscle spasm) Qty: 14 RF: 0 lidocaine HCl [Aspercreme (lidocaine HCl)] 4 % cream 1 appl topical BID PRN (Reason: pain) Qty: 120 RF: 0 naproxen 500 mg tablet 500 mg PO BID PRN (Reason: pain) Qty: 10 RF: 0 cefuroxime axetil 500 mg tablet 500 mg PO BID 7 Days Qty: 14 RF: 0
[2021-09-29 14:58] VITALS: BP 133/81; PULSE 68; RESP 18; TEMP 36.5; O2SAT 99
[2021-09-29 15:01] LABS: COVID-19 Test Negative (Negative)
== END 2021-09-29 15:52 | disposition home or self-care (01) ==
PROVIDERS: Physician Assistant; Emergency Provider Emergency Medicine Emergency Medical Services; PCP Internal Medicine
DX: J44.0 Chronic obstructive pulmonary disease with (acute) lower respiratory infection (principal); J20.9 Acute bronchitis, unspecified; I10 Essential (primary) hypertension; F17.200 Nicotine dependence, unspecified, uncomplicated; Z20.822 Contact with and (suspected) exposure to COVID-19
CPT/HCPCS: 36415; 71045; 87635; 93005; 99283; 99284

== ENCOUNTER 2021-11-13 09:41 | Outpatient (REF) | payer OTHER, SELFPAY ==
[2021-11-13 12:36] LABS: Binax Internal Control QC Valid; Binax Lot number: 9864; Binax Now Covid-19 Ag Negative (Negative)
== END 2021-11-13 09:42 | disposition home or self-care (01) ==
LOC: HO.LAB 09:41
PROVIDERS: Visit Provider Internal Medicine
DX: Z20.822 Contact with and (suspected) exposure to COVID-19 (principal)
CPT/HCPCS: 36415

== ENCOUNTER 2023-02-09 19:47 | Emergency (ER) | payer OTHER, SELFPAY ==
--- NOTE | ~2023-02-09 | XR_ITS ---
EXAMINATION: XR CHEST CLINICAL INFORMATION: Reason for Exam sob COMPARISON: Chest radiograph 09/29/2021 TECHNIQUE: One view of the chest FINDINGS: Clear lungs. No pneumothorax or pleural effusion. Normal cardiomediastinal silhouette. XR/XR chest 1V IMPRESSION: * Clear lungs.
--- NOTE | 2023-02-09 19:50 | ECG_ITS ---
Test Reason : SOB Blood Pressure : / mmHG Vent. Rate : 083 BPM Atrial Rate : 083 BPM P-R Int : 148 ms QRS Dur : 120 ms QT Int : 400 ms P-R-T Axes : 077 -53 092 degrees QTc Int : 470 ms Normal sinus rhythm Left axis deviation Left bundle branch block Abnormal ECG When compared with ECG of 29-SEP-2021 15:03, No significant changes seen Referred By: Bella Hayes Electronically Signed By:Garrick Juan
[2023-02-09 19:57] VITALS: BP 121/72; PULSE 81; RESP 18; TEMP 36.6; O2SAT 97; BMI 29.2
[2023-02-09 20:04] LABS: MANUAL DIFF FLAG NO
--- NOTE | 2023-02-09 20:10 | PC.NURSE ---
pt c/o coughing the last week and a half aox4 pt smokes cigarettes pt denies, n/v/d denies being febrile
[2023-02-09 20:11] LABS: Basophils Percent Auto 0.4 % (0-2); Eosinophils Absolute Auto 0.1 X10*3/uL (0.0-0.4); Eosinophils Percent Auto 1.3 % (0-4); Hemoglobin 14.3 g/dl (12.0-16.0); Imm Gran Abs Auto 0.02 X10*3/uL (0.00-0.03); Imm Gran Pct Auto 0.3 % (0.0-0.4); Lymphocytes Absolute Auto 1.8 X10*3/uL (1.2-4.9); Lymphocytes Percent Auto 23.4 % (20-40); Mean Corpuscular Hemoglobin 32.8 pg (27.0-33.0); Mean Corpuscular Volume 96.3 fL (80.0-98.0); Mean Platelet Volume 8.9 fL (9.4-12.3); Monocytes Absolute Auto 0.7 X10*3/uL (0.1-1.2); Monocytes Percent Auto 9.2 % (2-11); Neutrophils Percent Auto 65.4 % (45-73); Platelet Count 237 X10*3/uL (160-400); Red Blood Count 4.36 X10*6/uL (4.20-5.50); White Blood Count 7.6 X10*3/uL (4.8-10.8)
[2023-02-09 20:20] LABS: Alanine Aminotransferase 11 U/L (0-31); Albumin Level 4.1 g/dL (3.5-5.0); Alkaline Phosphatase 103 U/L (39-117); Anion Gap 14 (12-20); Aspartate Amino Transferase 12 U/L (5-31); Bilirubin Total 0.4 mg/dL (0.0-1.0); Blood Urea Nitrogen 10 mg/dL (9-16); Calcium 9.2 mg/dL (8.4-10.2); Carbon Dioxide 25 mmol/L (22-29); Chloride 103 mmol/L (96-108); Creatinine Clr Calc Pharmacy 74.2; Estimated Glomerular Filt Rate > 60; Glucose Random 118 mg/dL (60-115); Magnesium 2.2 mg/dL (1.6-2.6); Potassium 4.3 mmol/L (3.3-5.1); Sodium 138 mmol/L (135-145); Total Protein 6.7 g/dL (6.5-8.0)
[2023-02-09 20:26] LABS: COVID-19 Test Negative (Negative); IDNOW Serial# 08D9AD1C
[2023-02-09 20:29] LABS: Troponin-I High Sensitivity < 3.5 ng/L (<3.5-17.0)
[2023-02-09 20:31] LABS: B Type Natriuretic Peptide < 10 pg/mL (<100)
--- NOTE | 2023-02-09 20:31 | ED_ITS ---
HPI - SOB/Dyspnea General Chief Complaint: Dyspnea Stated Complaint: chest pain, congestion, difficulty breathing Time Seen by Provider: 02/09/23 20:22 History of Present Illness HPI Narrative: Patient is a 57-year-old female present today with having coughing congestion respiratory symptoms has been ongoing for about 2 weeks. Coughing up greenish sputum. Blowing clearish sputum from the nose. Patient is a smoker. Positive generalized malaise. Vaccinated for COVID. Positive history of COPD. No change in weight. Not in an enclosed environment. Patient from home. Related Data Previous Rx's Medication Instructions Recorded lidocaine HCl 4 % topical cream 1 appl topical BID PRN pain #120 07/22/21 (Aspercreme (lidocaine HCl)) grams atorvastatin 40 mg tablet 40 mg PO DAILY #90 tabs 03/28/22 lisinopril 5 mg tablet 5 mg PO DAILY #90 tabs 03/28/22 nystatin 100,000 unit/gram topical 1 appl topical BID #60 grams 03/28/22 powder albuterol sulfate 90 mcg/actuation 2 puff PO Q6H PRN Wheezing #8.5 06/03/22 aerosol inhaler grams fluticasone fur. 100 mcg-umeclid 1 inh inhalation DAILY #60 ea 12/05/22 62.5 mcg-vilant 25 mcg inhalat.powder (Trelegy Ellipta) doxycycline hyclate 100 mg capsule 100 mg PO BID cough 7 days #14 caps 02/09/23 Allergies Allergy/AdvReac Type Severity Reaction Status Date / Time Sulfa (Sulfonamide Allergy Intermediate HIVES Verified 02/09/23 19:59 Antibiotics) [SULFA (SULFONAMIDE ANTIBIOTICS)] Review of Systems Review of Systems: Positive coughing congestion upper respiratory symptoms Yes all other systems are reviewed and are negative [facility] Past Medical History Attestation statement: The following information was validated with the patient. Medical History Annual physical exam Asthma COPD (chronic obstructive pulmonary disease) HTN (hypertension) Hyperlipidemia Mammogram normal Microhematuria Obese Pap smear abnormality of cervix with ASCUS favoring benign Personal history of nicotine dependence Sinusitis Urinary incontinence Surgical History Hx of benign breast biopsy (~2005) Hx of colonoscopy Hx of tubal ligation Family History Family History Father COPD (chronic obstructive pulmonary disease) Mother HTN (hypertension) Diabetes Social History Social History Housing: House Alcohol intake: never Patient Tobacco Use Status: Current everyday Tobacco user Cigarette Packs Per Day: 0.75 Cigarettes Per Day: 15.0 Years Smoked: 44 (onset 11) e-Cigarette/Vaping Use: Never Used Advance Directives: No Advance Directives Information Provided: No service: No Current occupational status: employed Cognitive needs: No Hearing needs: No Vision needs: No Physical Exam Vital Signs: Vital Signs: Last Vital Signs Temp 97.9 F 02/09/23 19:57 Pulse 81 02/09/23 19:57 Resp 18 02/09/23 19:57 BP 121/72 02/09/23 19:57 Pulse Ox 97 02/09/23 19:57 O2 Del Method Room Air 02/09/23 19:57 BMI result Body Mass Index 29.2 Appearance: Alert. Oriented X3. No acute distress. Eyes: Pupils equal, round and reactive to light. ENT: Pharynx normal. Neck: Normal inspection. Neck supple. No lymph nodes noted. No crepitus CVS: Normal heart rate and rhythm. Pulses normal. Normal S1 and S2 Respiratory: No respiratory distress. Breath sounds normal. No Wheezing. No rales Abdomen: Soft and nontender. No rigidity. No distention. good BS x4 Skin: Skin warm and dry. Normal skin color. Normal skin turgor. Extremities: No lower extremity edema. Neurovascular intact to all extremities. No Lacerations. No Rash Neuro: Oriented X 3. No motor deficit. No sensory deficit. Moving all extermities. No slurred speech Medical Decision Making Medical Decision Making MDM Narrative: Patient 57-year-old female presents today with coughing upper khadijah symptoms. O2 sat is normal no signs of hypoxia. Patient's chest x-ray showed no focal infiltrate. Well appearing in good air. Troponin negative. My interpretation the patient's EKG showed a sinus pattern heart rate is 80 patient has a left bundle branch block which is old. Patient's BMP was normal there is no evidence for congestive heart failure. Will start patient on doxycycline for possible bronchitis. Close follow-up on an outpatient basis. Patient's COVID test was also negative. Lab Data MDM Lab Attestation statement: I reviewed the patient's lab results. 02/09/23 19:59 02/09/23 19:59 Labs: Lab Results 02/09/23 02/09/23 02/09/23 Range/Units 19:59 19:59 19:59 WBC 7.6 (4.8-10.8) X10*3/uL RBC 4.36 (4.20-5.50) X10*6/uL Hgb 14.3 (12.0-16.0) g/dl Hct 42.0 (37.0-47.0) % MCV 96.3 (80.0-98.0) fL MCH 32.8 (27.0-33.0) pg MCHC 34.0 (31.0-35.0) g/dl RDW 12.0 (11.0-16.0) % Plt Count 237 (160-400) X10*3/uL MPV 8.9 L (9.4-12.3) fL Immature Gran % (Auto) 0.3 (0.0-0.4) % Neut % (Auto) 65.4 (45-73) % Lymph % (Auto) 23.4 (20-40) % [place] % (Auto) 9.2 (2-11) % Eos % (Auto) 1.3 (0-4) % Baso % (Auto) 0.4 (0-2) % Lymph # (Auto) 1.8 (1.2-4.9) X10*3/uL [place] # (Auto) 0.7 (0.1-1.2) X10*3/uL Eos # (Auto) 0.1 (0.0-0.4) X10*3/uL Baso # (Auto) 0.0 (0.0-0.2) X10*3/uL Abs Immat Gran (auto) 0.02 (0.00-0.03) X10*3/uL Absolute Neuts (auto) 5.0 (2.0-8.3) x10*3/uL Absolute Nucleated RBC 0.000 (0.0-0.012) X10*3/uL Nucleated RBC % (auto) 0.0 (0.0-0.2) /100WBC Sodium 138 (135-145) mmol/L Potassium 4.3 (3.3-5.1) mmol/L Chloride 103 (96-108) mmol/L Carbon Dioxide 25 (22-29) mmol/L Anion Gap 14 (12-20) BUN 10 (9-16) mg/dL Creatinine 0.82 (0.5-1.4) mg/dL Estim Creat Clear Calc 74.2 Estimated GFR > 60 Random Glucose 118 H (60-115) mg/dL Calcium 9.2 (8.4-10.2) mg/dL Magnesium 2.2 (1.6-2.6) mg/dL Total Bilirubin 0.4 (0.0-1.0) mg/dL AST 12 (5-31) U/L ALT 11 (0-31) U/L Alkaline Phosphatase 103 (39-117) U/L Troponin I High Sens (<3.5-17.0) ng/L B-Natriuretic Peptide < 10 (<100) pg/mL Total Protein 6.7 (6.5-8.0) g/dL Albumin 4.1 (3.5-5.0) g/dL COVID-19 ([facility]) (Negative) COVID-19 Clin Com 02/09/23 02/09/23 Range/Units 19:59 19:59 WBC (4.8-10.8) X10*3/uL RBC (4.20-5.50) X10*6/uL Hgb (12.0-16.0) g/dl Hct (37.0-47.0) % MCV (80.0-98.0) fL MCH (27.0-33.0) pg MCHC (31.0-35.0) g/dl RDW (11.0-16.0) % Plt Count (160-400) X10*3/uL MPV (9.4-12.3) fL Immature Gran % (Auto) (0.0-0.4) % Neut % (Auto) (45-73) % Lymph % (Auto) (20-40) % [place] % (Auto) (2-11) % Eos % (Auto) (0-4) % Baso % (Auto) (0-2) % Lymph # (Auto) (1.2-4.9) X10*3/uL [place] # (Auto) (0.1-1.2) X10*3/uL Eos # (Auto) (0.0-0.4) X10*3/uL Baso # (Auto) (0.0-0.2) X10*3/uL Abs Immat Gran (auto) (0.00-0.03) X10*3/uL Absolute Neuts (auto) (2.0-8.3) x10*3/uL Absolute Nucleated RBC (0.0-0.012) X10*3/uL Nucleated RBC % (auto) (0.0-0.2) /100WBC Sodium (135-145) mmol/L Potassium (3.3-5.1) mmol/L Chloride (96-108) mmol/L Carbon Dioxide (22-29) mmol/L Anion Gap (12-20) BUN (9-16) mg/dL Creatinine (0.5-1.4) mg/dL Estim Creat Clear Calc Estimated GFR Random Glucose (60-115) mg/dL Calcium (8.4-10.2) mg/dL Magnesium (1.6-2.6) mg/dL Total Bilirubin (0.0-1.0) mg/dL AST (5-31) U/L ALT (0-31) U/L Alkaline Phosphatase (39-117) U/L Troponin I High Sens < 3.5 (<3.5-17.0) ng/L B-Natriuretic Peptide (<100) pg/mL Total Protein (6.5-8.0) g/dL Albumin (3.5-5.0) g/dL COVID-19 ([facility]) Negative (Negative) COVID-19 Clin Com See Note Independent Interpretation I performed an independent interpretation of an: EKG Interpretation: My interpretation patient's EKG showed a sinus pattern heart rate is 80 with left bundle branch block noted. The EKG is unchanged from previous. MD intervals normal QRS is wide secondary to left bundle branch block QTC is normal Radiology Impression Discussion of test interpretation with radiology: I have reviewed the radiologist's reading. Radiologist Impression: Chest x-ray negative for infiltrates External Record Review External record reviewed: Inpatient record Prescription Management I considered prescription management with: Antibiotic Chronic Conditions Smoker, history of COPD Discharge Plan Discharge Clinical Impression: Bronchitis Patient Disposition: Home, Self-Care Instructions: Acute Bronchitis (ED) Prescriptions: New doxycycline hyclate 100 mg capsule 100 mg PO BID 7 Days Qty: 14 0RF No Action albuterol sulfate 90 mcg/actuation HFA aerosol inhaler 2 puff PO Q6H PRN (Reason: Wheezing) Qty: 8.5 0RF Trelegy Ellipta 100-62.5-25 mcg blister with device 1 inh inhalation DAILY Qty: 60 5RF lidocaine HCl [Aspercreme (lidocaine HCl)] 4 % cream 1 appl topical BID PRN (Reason: pain) Qty: 120 0RF nystatin 100,000 unit/gram powder 1 appl topical BID Qty: 60 4RF atorvastatin 40 mg tablet 40 mg PO DAILY Qty: 90 3RF lisinopril 5 mg tablet 5 mg PO DAILY Qty: 90 3RF Referrals: Garima Bartlett MD [Primary Care Provider] - 02/11/23
[2023-02-09 22:10] VITALS: BP 145/70; PULSE 68; RESP 18; TEMP 36.4; O2SAT 98
== END 2023-02-09 22:16 | disposition home or self-care (01) ==
PROVIDERS: Physician Assistant; Emergency Provider Emergency Medicine Emergency Medical Services; PCP Family Medicine
DX: J40 Bronchitis, not specified as acute or chronic (principal); R07.89 Other chest pain; R06.02 Shortness of breath; Z20.822 Contact with and (suspected) exposure to COVID-19; Z20.828 Contact with and (suspected) exposure to other viral communicable diseases; Z79.899 Other long term (current) drug therapy
CPT/HCPCS: 36415; 71045; 80053; 83735; 83880; 84484; 85025; 87635; 93005; 99284; 99285

== ENCOUNTER 2023-03-27 08:24 | Outpatient (REF) | payer OTHER, SELFPAY ==
--- NOTE | ~2023-03-27 | CT_ITS ---
EXAMINATION: CT CHEST SCREENING CLINICAL INFORMATION: Personal history of nicotine dependence. Current smoker, 1 pack per day 43 pack years. COMPARISON: None available. TECHNIQUE: Multidetector volumetric CT imaging of the chest is performed without contrast using low dose technique. Additional 2D coronal and sagittal reformatted images and axial 3D maximum intensity projection (MIP) images are generated on the CT workstation. This CT examination was performed using dose optimization techniques as appropriate, variously including the following: *Automated exposure control *Adjustment of mA and/or kV according to patient size (this includes techniques or standardized protocols for targeted exams where dose is matched to indication/reason for exam; i.e. extremities or head) *Use of iterative reconstruction technique DLP: 59 mGy-cm FINDINGS: LUNGS: The lungs are well-expanded and clear of acute pneumonic process. There is a 3 mm tubular lesion in the right lower lobe likely intrabronchial or debris on axial image 98/9, 2 mm punctate calcifications right lower lobe axial image 93/9. MEDIASTINUM: The thyroid lobes are symmetric and normal. The central trachea and bronchi are widely patent. Heart size and the great vessels are normal caliber. CORONARY ARTERY CALCIFICATION: Mild coronary artery calcifications are seen. PLEURA: There is no pleural effusion. No pleural mass or thickening. AXILLA: Visualized liver, spleen, pancreas and bilateral adrenal glands are unremarkable. The gallbladder is contracted. UPPER ABDOMEN: Visualized liver, spleen, pancreas and bilateral adrenal glands are unremarkable. The gallbladder is contracted. OSSEOUS STRUCTURES: No aggressive lytic or sclerotic process seen. CT/CT lung screening IMPRESSION: 3 mm tubular lesion, right lower lobe, likely intrabronchiolar debris. ASSESSMENT: Lung-RADS category 2: Benign RECOMMENDATION: Low-dose annual CT chest
== END 2023-03-27 08:25 | disposition home or self-care (01) ==
LOC: HO.CT 08:24
PROVIDERS: PCP Family Medicine; Visit Provider Physician Assistant Medical
DX: Z12.2 Encounter for screening for malignant neoplasm of respiratory organs (principal); Z87.891 Personal history of nicotine dependence
CPT/HCPCS: 71271

== ENCOUNTER 2023-09-03 08:13 | Outpatient (REF) | payer OTHER, SELFPAY | END 2023-09-03 08:14 | disposition home or self-care (01) | LOC: HO.MAMMO 08:13 | PROVIDERS: PCP Family Medicine; Visit Provider Family Medicine | DX: Z12.31 Encounter for screening mammogram for malignant neoplasm of breast (principal) | CPT/HCPCS: 77063; 77067 ==

== ENCOUNTER → 2023-09-03 08:30 | Outpatient (BNV) | payer OTHER, SELFPAY | PROVIDERS: PCP Family Medicine; Visit Provider Radiology Diagnostic Radiology | DX: Z12.31 Encounter for screening mammogram for malignant neoplasm of breast (principal) | CPT/HCPCS: 77063; 77067 ==

== ENCOUNTER 2024-04-19 08:52 | Outpatient (REF) | payer OTHER, SELFPAY ==
--- NOTE | ~2024-04-19 | CT_ITS ---
EXAMINATION: CT LOW-DOSE SCREENING CHEST WITHOUT CONTRAST CLINICAL INFORMATION: Nicotine dependence, cigarettes, uncomplicated. The patient is a current smoker with a 30 pack-year history of smoking. COMPARISON: CT chest 03/27/2023 and 04/19/2021. TECHNIQUE: Multidetector volumetric CT imaging of the chest is performed on a Siemens SOMATOM Definition scanner without contrast using low dose technique. Additional 2D coronal and sagittal reformatted images and axial 3D maximum intensity projection (MIP) images are generated on the CT workstation. This CT examination was performed using dose optimization techniques as appropriate, variously including the following: *Automated exposure control. *Adjustment of mA and/or kV according to patient size (this includes techniques or standardized protocols for targeted exams where dose is matched to indication/reason for exam; i.e. extremities or head). *Use of iterative reconstruction technique. TOTAL EXAM DLP: 52 mGy-cm. CTDIvol: 1.53 mGy. FINDINGS: PULMONARY NODULES: A 3 mm nodule seen in the right upper lobe along the major fissure is unchanged (5:247 compare prior 5:267). A right lower lobe calcified granuloma is seen. There are a few areas of inspissated mucus within bronchi (for example, right lower lobe 5:335). No new, increasing-sized or suspicious pulmonary nodules seen. LUNGS: Lungs bilaterally symmetrically expanded. There is moderate emphysema along with mild bronchial thickening. No focal lung nodule or mass. No effusion or pneumothorax. Central airways patent. MEDIASTINUM: No mediastinal, hilar or axillary adenopathy or free fluid collection. CORONARY ARTERY CALCIFICATION: None visualized on this study. THYROID GLAND: Unremarkable to the extent seen. CARDIOVASCULAR STRUCTURES: Aortic and heart size normal. No pericardial effusion. CHEST WALL/AXILLA: Unremarkable. UPPER ABDOMEN: Included portions of the solid organs in the upper abdomen unremarkable on noncontrast imaging. OSSEOUS STRUCTURES: No suspicious focal findings. CT/CT lung screening IMPRESSION: 1. No evidence of pulmonary malignancy. 2. Moderate emphysema. 3. Incidental findings (s category): No incidental findings. ASSESSMENT: 1. Lung-RADS Category 2: Benign appearance or behavior of nodules. N/A. RECOMMENDATION: Continued routine annual low-dose CT lung screening in 1 year is recommended. An order for CT CHEST LOW DOSE CANCER SCREENING ([id number]) can be placed.
== END 2024-04-19 08:53 | disposition home or self-care (01) ==
LOC: HO.CT 08:52
PROVIDERS: PCP Family Medicine; Visit Provider Physician Assistant Medical
DX: Z12.2 Encounter for screening for malignant neoplasm of respiratory organs (principal); F17.210 Nicotine dependence, cigarettes, uncomplicated
CPT/HCPCS: 71271

== ENCOUNTER 2024-11-05 15:20 | Emergency (ER) | payer OTHER, SELFPAY ==
[2024-11-05] VITALS (7 sets, daily range): BP systolic 139–184; BP diastolic 76–92; PULSE 83–105; RESP 18–26; TEMP 36.9–37.1; O2SAT 95–99; BMI 34.2
--- NOTE | ~2024-11-05 | XR_ITS ---
EXAMINATION: Right hand 3 views and left shoulder 3 views. CLINICAL INDICATION: Pain. COMPARISON: None. FINDINGS: Right hand: There is no visible acute fracture, dislocation or subluxation seen. The joint space are normal. The soft tissues are normal. Left shoulder: The glenohumeral and AC joint spaces are preserved. There is no visible acute fracture, dislocation or lytic process seen. The soft tissues are normal. XR/XR shoulder LT min 2V IMPRESSION: Unremarkable left shoulder exam. Electronically signed by: Robin Pederson MD 11/05/2024 05:39 PM EST
--- NOTE | ~2024-11-05 | CT_ITS ---
CLINICAL HISTORY: head pain CT head without contrast Comparison: None Findings: No intra-axial mass, midline shift, hydrocephalus, or acute hemorrhage. No significant atrophy-like change or white matter disease. There is no sinus or mastoid fluid. The orbits are unremarkable. No skull fracture. IMPRESSION: 1. No acute intracranial findings This document has been electronically signed by: Corona Chan MD on 11/05/2024 17:25:39
--- NOTE | ~2024-11-05 | CT_ITS ---
CLINICAL HISTORY: head pain CT cervical spine without contrast Comparison: None Findings: Normal vertebral body alignment. Multiple level degenerative disc, facet, and uncovertebral joint change. No acute fractures or dislocations. Visualized intracranial contents are unremarkable. Soft tissues of the neck are normal. No consolidation or effusion at the lung apices. IMPRESSION: No acute findings. This document has been electronically signed by: Corona Chan MD on 11/05/2024 17:22:44
--- NOTE | ~2024-11-05 | XR_ITS ---
EXAMINATION: XR CHEST CLINICAL INFORMATION: syncope COMPARISON: Chest x-ray 02/09/2023. TECHNIQUE: Frontal view of the chest was obtained. FINDINGS: No significant abnormality is noted involving the heart, lungs, mediastinum, bony thorax or soft tissues. XR/XR chest 1V IMPRESSION: Unremarkable chest examination. Electronically signed by: Robin Pederson MD 11/05/2024 05:37 PM [facility] [place]
--- NOTE | ~2024-11-05 | XR_ITS ---
EXAMINATION: Right hand 3 views and left shoulder 3 views. CLINICAL INDICATION: Pain. COMPARISON: None. FINDINGS: Right hand: There is no visible acute fracture, dislocation or subluxation seen. The joint space are normal. The soft tissues are normal. Left shoulder: The glenohumeral and AC joint spaces are preserved. There is no visible acute fracture, dislocation or lytic process seen. The soft tissues are normal. XR/XR hand RT min 3V IMPRESSION: Unremarkable left shoulder exam. Electronically signed by: Robin Pederson MD 11/05/2024 05:39 PM EST
--- NOTE | 2024-11-05 15:27 | ECG_ITS ---
Test Reason : syncope Blood Pressure : / mmHG Vent. Rate : 092 BPM Atrial Rate : 092 BPM P-R Int : 162 ms QRS Dur : 116 ms QT Int : 372 ms P-R-T Axes : 067 -50 092 degrees QTc Int : 460 ms Normal sinus rhythm Left bundle branch block Abnormal ECG When compared with ECG of 09-FEB-2023 19:50, No significant change was found Referred By: Generic ED Physician Electronically Signed By:Garrick Juan
[2024-11-05 15:49] LABS: MANUAL DIFF FLAG NO
[2024-11-05 15:50] LABS: Basophils Percent Auto 0.5 % (0-2); Eosinophils Absolute Auto 0.1 X10*3/uL (0.0-0.4); Eosinophils Percent Auto 1.6 % (0-4); Hematocrit 41.1 % (37.0-47.0); Hemoglobin 13.7 g/dl (12.0-16.0); Imm Gran Abs Auto 0.01 X10*3/uL (0.00-0.03); Imm Gran Pct Auto 0.2 % (0.0-0.4); Lymphocytes Absolute Auto 1.8 X10*3/uL (1.2-4.9); Mean Corpuscular HGB Conc 33.3 g/dl (31.0-35.0); Mean Corpuscular Hemoglobin 32.9 pg (27.0-33.0); Mean Corpuscular Volume 98.6 fL (80.0-98.0); Mean Platelet Volume 8.8 fL (9.4-12.3); Monocytes Absolute Auto 0.5 X10*3/uL (0.1-1.2); Monocytes Percent Auto 9.6 % (2-11); Neutrophils Absolute Auto 3.2 x10*3/uL (2.0-8.3); Neutrophils Percent Auto 56.1 % (45-73); Platelet Count 209 X10*3/uL (160-400); Red Blood Count 4.17 X10*6/uL (4.20-5.50); Red Cell Distribution Width 12.3 % (11.0-16.0); White Blood Count 5.7 X10*3/uL (4.8-10.8)
[2024-11-05 16:10] LABS: Alanine Aminotransferase 27 U/L (0-31); Albumin Level 3.8 g/dL (3.5-5.0); Alkaline Phosphatase 98 U/L (39-117); Anion Gap 12 (12-20); Aspartate Amino Transferase 25 U/L (5-31); Bilirubin Total 0.2 mg/dL (0.0-1.0); Blood Urea Nitrogen 11 mg/dL (9-16); Calcium 8.8 mg/dL (8.4-10.2); Carbon Dioxide 23 mmol/L (22-29); Chloride 108 mmol/L (96-108); Creatinine Clr Calc Pharmacy 76.5; Estimated Glomerular Filt Rate > 60; Glucose Random 115 mg/dL (60-115); Potassium 4.1 mmol/L (3.3-5.1); Sodium 139 mmol/L (135-145); Total Protein 6.8 g/dL (6.5-8.0)
[2024-11-05 16:23] LABS: Troponin-I High Sensitivity < 2.7 ng/L (<3.5-17.0)
--- NOTE | 2024-11-05 16:42 | ED_ITS ---
HPI - General Adult General Chief complaint: Syncope Stated complaint: syncope at [facility] Time Seen by Provider: 11/05/24 16:07 Source: patient History of Present Illness ED Provider: Charla [facility] narrative: 59yo female presenting for syncope. Patient was walking into [facility] earlier today when she experienced lightheadedness and syncopized. Patient states I felt severe lightheadedness and nec thing I know I'm waking up on the floor . Pt states he will intermittently expeirence lightheadedness however she normally does not pass out. She denies head pain, neck pain, chest pain, sob, abd pain, n/v/d. She does feel thirsty and endorses left shoulder pain and right hand pain Related Data Previous Rx's ?Medication ?Instructions ?Recorded lidocaine HCl 4 % topical cream 1 appl topical BID PRN pain #120 07/22/21 (Aspercreme (lidocaine HCl)) grams atorvastatin 40 mg tablet 40 mg PO DAILY #90 tabs 03/28/22 lisinopril 5 mg tablet 5 mg PO DAILY #90 tabs 03/28/22 nystatin 100,000 unit/gram topical 1 appl topical BID #60 grams 03/28/22 powder albuterol sulfate 90 mcg/actuation 2 puff PO Q6H PRN Wheezing #8.5 06/03/22 aerosol inhaler grams fluticasone fur. 100 mcg-umeclid 1 inh inhalation DAILY #60 ea 12/05/22 62.5 mcg-vilant 25 mcg inhalat.powder (Trelegy Ellipta) doxycycline hyclate 100 mg capsule 100 mg PO BID cough 7 days #14 caps 02/09/23 Allergies Allergy/AdvReac Type Severity Reaction Status Date / Time Sulfa (Sulfonamide Allergy Intermediate HIVES Verified 11/05/24 15:32 Antibiotics) [SULFA (SULFONAMIDE ANTIBIOTICS)] Review of Systems 2 Review of Systems: Pt endorses feeling thirsty Yes all other systems are reviewed and are negative PMFSH Past Medical History Medical History HTN (hypertension) Hyperlipidemia Asthma COPD (chronic obstructive pulmonary disease) Nicotine dependence, cigarettes, uncomplicated Microhematuria Urinary incontinence Obese Pap smear abnormality of cervix with ASCUS favoring benign Mammogram normal Surgical History Hx of benign breast biopsy (~2005) Hx of tubal ligation Hx of colonoscopy Family History Family History Father COPD (chronic obstructive pulmonary disease) Mother HTN (hypertension) Diabetes Social History Social History Housing: House Alcohol intake: never Patient Tobacco Use Status: Current everyday Tobacco user Cigarette Packs Per Day: 0.75 Cigarettes Per Day: 15.0 Years Smoked: 44 (onset 11) Smoked in Last 30 Days: Yes e-Cigarette/Vaping Use: Never Used Advance Directives: No Advance Directives Information Provided: Yes Patient : No service: No Current occupational status: employed Cognitive needs: No Hearing needs: No Vision needs: No Physical Exam ED Vital Signs: Vital Signs - 24 hr 11/05/24 15:30 11/05/24 15:58 11/05/24 15:59 Temperature 98.5 F Pulse Rate 96 87 94 Respiratory Rate 18 Blood Pressure 145/76 H 139/79 157/85 H Pulse Oximetry 97 Oxygen Delivery Method Room Air 11/05/24 16:01 11/05/24 17:39 Temperature 98.7 F Pulse Rate 102 H 83 Respiratory Rate 26 H Blood Pressure 148/84 H 145/83 H Pulse Oximetry 95 Oxygen Delivery Method Room Air BMI result Body Mass Index 34.2 well appearing in no acute distress head normocephalic and atraumatic; no midline cspine TTP A&Ox4; no focal neurologic deficits; walking with steady gait lungs ctab ns1s2 rrr FROM at left shoulder and LUQ neurovascularly intact with strong radial pulse FROM of right wrist and finger with no ttp abdomen soft nontender nondistended Medical Decision Making Medical Decision Making MDM Narrative: 59-year-old female presenting for syncopal episode. I am concerned for the following: dehydration, electrolyte/metabolic disturbance, vasovagal episodes, orthostasis Patient likely suffered soft tissue trauma during her fall and while I have no concerns for fracture, head bleed, neck fracture appropriate imaging was ordered to rule these out Labs and imaging studies ordered Labs notable for electrolytes within normal limits, normal creatinine, stable H&H and No signs of ischemia appreciated on pt's ecg I reviewed patient's head and cervical spine CTs and did not appreciate any acute signs of trauma and radiologist's impression is negative for bleed/cervical fx I reviewed pt's plain films and did not aprpeciate fracture and radiologist impression is also negative for acute trauma Orthostatics obtained and unremarkable UA w/o signs of UTI Pt's workup is unremarkable. I believe she may have experienced syncope 2/2 vasovagal episoes vs orthostasis. I do not believe patient requires admission as she has remained well appearing and has no significant findings on workup. I provided her with proper precautions when standing and instructed her to followup with her PCP. I also provided return precautions. Pt discharged Lab Data 11/05/24 15:45 11/05/24 15:45 Labs: Lab Results 11/05/24 11/05/24 11/05/24 Range/Units 15:45 17:22 17:55 WBC 5.7 (4.8-10.8) X10*3/uL RBC 4.17 L (4.20-5.50) X10*6/uL Hgb 13.7 (12.0-16.0) g/dl Hct 41.1 (37.0-47.0) % MCV 98.6 H (80.0-98.0) fL MCH 32.9 (27.0-33.0) pg MCHC 33.3 (31.0-35.0) g/dl RDW 12.3 (11.0-16.0) % Plt Count 209 (160-400) X10*3/uL MPV 8.8 L (9.4-12.3) fL Immature Gran % (Auto) 0.2 (0.0-0.4) % Neut % (Auto) 56.1 (45-73) % Lymph % (Auto) 32.0 (20-40) % [place] % (Auto) 9.6 (2-11) % Eos % (Auto) 1.6 (0-4) % Baso % (Auto) 0.5 (0-2) % Lymph # (Auto) 1.8 (1.2-4.9) X10*3/uL [place] # (Auto) 0.5 (0.1-1.2) X10*3/uL Eos # (Auto) 0.1 (0.0-0.4) X10*3/uL Baso # (Auto) 0.0 (0.0-0.2) X10*3/uL Abs Immat Gran (auto) 0.01 (0.00-0.03) X10*3/uL Absolute Neuts (auto) 3.2 (2.0-8.3) x10*3/uL Absolute Nucleated RBC 0.000 (0.0-0.012) X10*3/uL Nucleated RBC % (auto) 0.0 (0.0-0.2) /100WBC PT 11.9 (10.9-12.4) SEC INR 1.0 (0.9-1.1) APTT 36.2 (26.0-36.8) SEC Sodium 139 (135-145) mmol/L Potassium 4.1 (3.3-5.1) mmol/L Chloride 108 (96-108) mmol/L Carbon Dioxide 23 (22-29) mmol/L Anion Gap 12 (12-20) BUN 11 (9-16) mg/dL Creatinine 0.84 (0.5-1.4) mg/dL Estim Creat Clear Calc 76.5 Estimated GFR > 60 Random Glucose 115 (60-115) mg/dL Lactic Acid 0.9 (0.5-2.0) mmol/L Calcium 8.8 (8.4-10.2) mg/dL Total Bilirubin 0.2 (0.0-1.0) mg/dL AST 25 (5-31) U/L ALT 27 (0-31) U/L Alkaline Phosphatase 98 (39-117) U/L Troponin I High Sens < 2.7 3.2 (<3.5-17.0) ng/L Total Protein 6.8 (6.5-8.0) g/dL Albumin 3.8 (3.5-5.0) g/dL Urine Color Yellow Urine Appearance Clear Urine pH 7.0 (5.0-9.0) Ur Specific [place] 1.015 (1.005-1.025) Urine Protein Trace (Neg-Trace) mg/dL Urine Glucose (UA) Negative (Negative) mg/dL Urine Ketones Negative (Negative) mg/dL Urine Blood Small (1+) H (Negative) Urine Nitrite Negative (Negative) Ur Leukocyte Esterase Negative (Negative) Urine RBC 11-20 H (0-2) /HPF Urine WBC 0-5 (0-5) /HPF Ur Squamous Epith Cells 0-2 (0-2) /HPF Urine Bacteria None Seen (None Seen) Hyaline Casts 0-2 (0-2) /LPF Discharge Plan Discharge Clinical Impression: Syncope Qualifiers: Syncope type: unspecified Qualified Code(s): R55 - Syncope and collapse Patient Disposition: Home, Self-Care Instructions: Syncope (DC) Additional Instructions: Please follow up with your primary care provider in the next 24-48 hours for reassessment. If you develop any new or worsening symptoms please return to the emergency department Prescriptions: No Action albuterol sulfate 90 mcg/actuation HFA aerosol inhaler 2 puff PO Q6H PRN (Reason: Wheezing) Qty: 8.5 0RF Trelegy Ellipta 100-62.5-25 mcg blister with device 1 inh inhalation DAILY Qty: 60 5RF lidocaine HCl [Aspercreme (lidocaine HCl)] 4 % cream 1 appl topical BID PRN (Reason: pain) Qty: 120 0RF doxycycline hyclate 100 mg capsule 100 mg PO BID 7 Days Qty: 14 0RF nystatin 100,000 unit/gram powder 1 appl topical BID Qty: 60 4RF atorvastatin 40 mg tablet 40 mg PO DAILY Qty: 90 3RF lisinopril 5 mg tablet 5 mg PO DAILY Qty: 90 3RF Print Language: [place]
[2024-11-05 17:29] LABS: Appearance Urine Clear; Color Urine Yellow; Glucose Urine UA Negative (Negative); Leukocyte Esterase Urine Negative (Negative); Nitrite Urine Negative (Negative); Specific Gravity - Urine 1.015 (1.005-1.025); UMIC TRIGGER UACC YES; Urine Blood Small (1+) (Negative); Urine Ketones Negative (Negative); Urine Protein Trace mg/dL (Neg-Trace)
[2024-11-05 17:31] LABS: Bacteria Urine None Seen (None Seen); Hyaline Casts Urine 0-2 /LPF (0-2); Squamous Epithelial Cell Urine 0-2 /HPF (0-2); WBC Urine 0-5 /HPF (0-5)
[2024-11-05 17:35] LABS: Prothrombin Time 11.9 SEC (10.9-12.4)
[2024-11-05 17:37] LABS: Partial Thromboplastin Time 36.2 SEC (26.0-36.8)
[2024-11-05 17:58] LABS: Lactic Acid 0.9 mmol/L (0.5-2.0)
[2024-11-05 18:25] LABS: Troponin-I High Sensitivity 3.2 ng/L (<3.5-17.0)
== END 2024-11-05 18:59 | disposition home or self-care (01) ==
PROVIDERS: Emergency Provider Student in an Organized Health Care Education/Training Program; PCP Family Medicine
DX: R55 Syncope and collapse (principal); R42 Dizziness and giddiness; I10 Essential (primary) hypertension; I44.7 Left bundle-branch block, unspecified; M79.641 Pain in right hand; R94.31 Abnormal electrocardiogram [ECG] [EKG]; M25.511 Pain in right shoulder; F17.210 Nicotine dependence, cigarettes, uncomplicated; Z79.899 Other long term (current) drug therapy
CPT/HCPCS: 36415; 70450; 71045; 72125; 73030; 73130; 80053; 81001; 83605; 84484; 85025; 85610; 85730; 93005; 99284; 99285

== ENCOUNTER → 2024-11-05 15:27 | Outpatient (BNV) | payer OTHER, SELFPAY | PROVIDERS: Emergency Provider Student in an Organized Health Care Education/Training Program; PCP Family Medicine; Visit Provider Internal Medicine Cardiovascular Disease | DX: R55 Syncope and collapse (principal); I44.7 Left bundle-branch block, unspecified; R94.31 Abnormal electrocardiogram [ECG] [EKG] | CPT/HCPCS: 93010 ==

== ENCOUNTER → 2024-11-05 16:10 | Outpatient (BNV) | payer OTHER, SELFPAY | PROVIDERS: Emergency Provider Student in an Organized Health Care Education/Training Program; PCP Family Medicine | DX: R51.9 Headache, unspecified (principal); R55 Syncope and collapse; M25.512 Pain in left shoulder; M79.642 Pain in left hand | CPT/HCPCS: 70450; 71045; 72125; 73030; 73130 ==

== ENCOUNTER 2024-11-15 11:04 | Emergency (ER) | payer OTHER, SELFPAY ==
--- NOTE | 2024-11-15 | ECG_ITS ---
Test Reason : dizziness Blood Pressure : / mmHG Vent. Rate : 089 BPM Atrial Rate : 089 BPM P-R Int : 152 ms QRS Dur : 124 ms QT Int : 388 ms P-R-T Axes : 072 -48 098 degrees QTc Int : 472 ms Normal sinus rhythm Possible Left atrial enlargement Left axis deviation Left bundle branch block Abnormal ECG When compared with ECG of 05-NOV-2024 15:52, No significant changes seen Referred By: Generic ED Physician Electronically Signed By:ALLYN ENGLAND
[2024-11-15 11:06] VITALS: BP 138/58; PULSE 101; RESP 20; TEMP 36.1; O2SAT 99; BMI 32.6
[2024-11-15 11:38] LABS: MANUAL DIFF FLAG NO
[2024-11-15 11:41] LABS: Basophils Percent Auto 0.7 % (0-2); Eosinophils Absolute Auto 0.1 X10*3/uL (0.0-0.4); Eosinophils Percent Auto 1.7 % (0-4); Hematocrit 43.5 % (37.0-47.0); Hemoglobin 14.3 g/dl (12.0-16.0); Imm Gran Abs Auto 0.02 X10*3/uL (0.00-0.03); Imm Gran Pct Auto 0.3 % (0.0-0.4); Lymphocytes Absolute Auto 1.9 X10*3/uL (1.2-4.9); Lymphocytes Percent Auto 32.3 % (20-40); Mean Corpuscular HGB Conc 32.9 g/dl (31.0-35.0); Mean Corpuscular Hemoglobin 32.6 pg (27.0-33.0); Mean Corpuscular Volume 99.1 fL (80.0-98.0); Mean Platelet Volume 9.1 fL (9.4-12.3); Monocytes Absolute Auto 0.4 X10*3/uL (0.1-1.2); Monocytes Percent Auto 7.5 % (2-11); Neutrophils Absolute Auto 3.4 x10*3/uL (2.0-8.3); Neutrophils Percent Auto 57.5 % (45-73); Platelet Count 231 X10*3/uL (160-400); Red Blood Count 4.39 X10*6/uL (4.20-5.50); Red Cell Distribution Width 12.4 % (11.0-16.0); White Blood Count 5.9 X10*3/uL (4.8-10.8)
[2024-11-15 12:12] LABS: Alanine Aminotransferase 14 U/L (0-31); Anion Gap 10 (12-20); Aspartate Amino Transferase 32 U/L (5-31); Bilirubin Total 0.3 mg/dL (0.0-1.0); Blood Urea Nitrogen 10 mg/dL (9-16); Calcium 9.4 mg/dL (8.4-10.2); Carbon Dioxide 27 mmol/L (22-29); Chloride 107 mmol/L (96-108); Creatinine Clr Calc Pharmacy 78.4; Estimated Glomerular Filt Rate > 60; Glucose Random 139 mg/dL (60-115); Potassium 3.9 mmol/L (3.3-5.1); Sodium 140 mmol/L (135-145); Total Protein 7.1 g/dL (6.5-8.0)
[2024-11-15 12:28] LABS: Alkaline Phosphatase 106 U/L (39-117)
[2024-11-15 14:52] VITALS: BP 128/70; PULSE 65
[2024-11-15 14:54] VITALS: BP 123/75; PULSE 67
[2024-11-15 14:55] VITALS: BP 135/70; PULSE 69
--- NOTE | 2024-11-15 15:28 | ED_ITS ---
HPI - General Adult General Chief complaint: Dizziness Stated complaint: Dizziness Time Seen by Provider: 11/15/24 15:27 Source: patient Mode of arrival: ambulatory Limitations: no limitations History of Present Illness ED Provider: Natalya Major PA-C HPI narrative: Patient is a 59 year old assigned female at with a history of COPD, HTN, asthma, HLD, smoker, and LBBB presenting to the emergency department today with dizziness. Patient states that she was recently seen for a syncopal episode at this ER and had an entire work up that was negative. Patient states that she looked down and back up quickly today and became dizzy. Patient states that her PCP told her to go to an ER immediately. Patient denies any current dizziness, lightheadedness, abdominal pain, nausea, vomiting, fever, chills, blurry vision, double vision, loss of vision, chest pain, difficulty breathing, shortness of breath, back pain, night sweats, pain with urination, increased urinary frequency, increased urinary urgency, blood in her urine or stool, syncope or a near syncopal episode, recent trauma or falls, bowel incontinence, bladder incontinence, or any other complaints at this time. Relieving factors: none Exacerbating factors: none Associated symptoms: denies other symptoms Treatments prior to arrival: none Related Data Previous Rx's ?Medication ?Instructions ?Recorded lidocaine HCl 4 % topical cream 1 appl topical BID PRN pain #120 07/22/21 (Aspercreme (lidocaine HCl)) grams atorvastatin 40 mg tablet 40 mg PO DAILY #90 tabs 03/28/22 lisinopril 5 mg tablet 5 mg PO DAILY #90 tabs 03/28/22 nystatin 100,000 unit/gram topical 1 appl topical BID #60 grams 03/28/22 powder albuterol sulfate 90 mcg/actuation 2 puff PO Q6H PRN Wheezing #8.5 06/03/22 aerosol inhaler grams fluticasone fur. 100 mcg-umeclid 1 inh inhalation DAILY #60 ea 12/05/22 62.5 mcg-vilant 25 mcg inhalat.powder (Trelegy Ellipta) doxycycline hyclate 100 mg capsule 100 mg PO BID cough 7 days #14 caps 02/09/23 meclizine 25 mg tablet 25 mg PO DAILY PRN dizziness #7 11/15/24 tabs Allergies Allergy/AdvReac Type Severity Reaction Status Date / Time Sulfa (Sulfonamide Allergy Intermediate HIVES Verified 11/15/24 11:07 Antibiotics) [SULFA (SULFONAMIDE ANTIBIOTICS)] Review of Systems 2 Constitutional: Constitutional: Reports no additional constitutional complaints, Denies chills, Denies fever(s) and Denies night sweats Eyes: Eyes: Reports no additional eye complaints, Denies blurry vision, Denies change in vision, Denies diplopia, Denies eye discharge, Denies loss of vision and Denies eye pain ENT: Reports dizziness (now resolved) Cardiovascular: Cardiovascular: Reports no additional cardiovascular complaints, Denies chest pain, Denies lightheadedness, Denies Loss of Consciousness and Denies dyspnea Respiratory: Respiratory: Reports no additional respiratory complaints and Denies dyspnea Gastrointestinal: Gastrointestinal: Reports no additional gastrointestinal complaints, Denies abdominal pain, Denies melena, Denies hematochezia, Denies change in bowel habits and Denies change in stool character Genitourinary: Genitourinary: Denies hematuria, Denies urinary frequency, Denies dysuria, Denies urinary incontinence, Denies urinary hesitancy and Denies urinary urgency Musculoskeletal: Musculoskeletal: Reports no additional musculoskeletal complaints, Denies numbness and Denies tingling Neurologic: Reports dizziness (now resolved), Denies loss of vision, Denies numbness and Denies tingling Psychiatric: Psychiatric: Reports no additional psychiatric complaints Endocrine: Endocrine: Reports no additional endocrine complaints Hematologic/Lymphatic: Hematologic/Lymphatic: Reports no additional hematologic/lymphatic complaints Allergic/Immunologic: Allergic/Immunologic: Reports no additional allergic/immunologic complaints [facility] Past Medical History Attestation statement: The following information was validated with the patient. Source: old records reviewed and nursing notes reviewed Medical History HTN (hypertension) Hyperlipidemia Asthma COPD (chronic obstructive pulmonary disease) Nicotine dependence, cigarettes, uncomplicated Microhematuria Urinary incontinence Obese Pap smear abnormality of cervix with ASCUS favoring benign Mammogram normal Surgical History Hx of benign breast biopsy (~2005) Hx of tubal ligation Hx of colonoscopy Family History Family History Father COPD (chronic obstructive pulmonary disease) Mother HTN (hypertension) Diabetes Social History Social History Housing: House Alcohol intake: never Patient Tobacco Use Status: Current everyday Tobacco user Cigarette Packs Per Day: 0.75 Cigarettes Per Day: 15.0 Years Smoked: 44 (onset 11) e-Cigarette/Vaping Use: Never Used Advance Directives: No Advance Directives Information Provided: Yes service: No Current occupational status: employed Cognitive needs: No Hearing needs: No Vision needs: No Physical Exam ED Vital Signs: Vital Signs - 24 hr 11/15/24 11:06 11/15/24 14:52 11/15/24 14:54 Temperature 97 F Pulse Rate 101 H 65 67 Respiratory Rate 20 Blood Pressure 138/58 L 128/70 123/75 Pulse Oximetry 99 Oxygen Delivery Method Room Air 11/15/24 14:55 11/15/24 16:23 Temperature 97.9 F Pulse Rate 69 67 Respiratory Rate 20 Blood Pressure 135/70 130/72 Pulse Oximetry 99 Oxygen Delivery Method Room Air BMI result Body Mass Index 32.6 Const General: cooperative, no acute distress, alert and awake Nutritional Appearance: well nourished Orientation/consciousness: patient oriented x3 Limitations: no limitations HENMT Head: Yes normal to inspection and Yes atraumatic Ears: hearing grossly normal bilaterally and external ears normal General nose exam: Normal external nose present, no nasal discharge noted and no epistaxis Face and sinus: Yes normal facial exam, No abrasion and No laceration Mouth: Normal oral and palatal mucosa present, no drooling and no muffled voice Eyes General: appearance normal, both eyes and all related structures Periorbital: periorbital findings normal Eyelids: Yes eyelids normal Conjunctivae: conjunctivae normal Pupils: Equal, round and reactive pupils present EOM: EOMs intact bilaterally Neck Neck: Yes normal visual inspection, Yes full ROM and Yes no lymphadenopathy Chest Chest palpation & inspection: normal inspection of the chest Resp Effort & Inspection: normal respiratory effort and able to speak in complete sentences GI Inspection: Yes normal to inspection Neuro General: patient oriented x3 and moves all extremities Cranial nerves: Yes Equal, round and reactive pupils present Cognition (Neuro): normal cognition Extrem General: Yes normal to inspection, Yes full ROM and Yes capillary refill normal Psych Appearance: grossly normal Mental Status: mental status grossly normal Affect: normal affect Attitude: cooperative Thought process: Normal thought process present Thought content: Normal thought content present Insight: Good insight present (Psych) NIH Stroke Scale Internal: Initial- Upon Arrival Time: 15:28 Level of Consciousness: Alert Level of Consciousness Questions: Answers both questions correctly Level of Consciousness Commands: Performs both tasks correctly Best Gaze: Normal Visual: No visual loss Facial Palsy: Normal Motor Arm (Right): No drift Motor Arm (Left): No drift Motor Leg (Right): No drift Motor Leg (Left): No drift Limb Ataxia: Absent Sensory: Normal Best Language: No aphasia Dysarthia: Normal Extinction and Inattention: No abnormality Score: 0 Medical Decision Making Medical Decision Making [facility] Narrative: Patient is a 59 year old assigned female at with a history of COPD, HTN, asthma, HLD, smoker, and LBBB presenting to the emergency department today with dizziness. Patient's physical exam was unremarkable. Patient's blood work was unremarkable. Patient's EKG was unremarkable. I explained my physical exam findings as well as all test results to the patient. I answered all questions asked by the patient. Patient's physical examination is most consistent with BPPV. I stressed the importance of the patient taking her medication as directed (either prescribed or as the over the counter packaging recommends). 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 I stressed the importance of the patient returning to the emergency department immediately if her symptoms were to worsen or if she were to develop any dizziness, shortness of breath, difficulty breathing, chest pain, blurry vision, loss of vision, nausea, vomiting, abdominal pain, fever, chills, back pain, or any other complaints. Patient verbalized agreement and understanding with this treatment plan and discharge. Differential Diagnosis Differential Diagnoses: The differential diagnosis associated with the presentation includes BPPV Dizziness Admission/Observation Consideration of admission/observation: Escalation of care including admission/observation considered Patient would have been admitted to the hospital had her work up had any findings where hospital admission was appropriate and her clinical presentation warranted hospital admission. Lab Data [facility] Lab Attestation statement: I reviewed the patient's lab results. My interpretation of these results are in the [facility] Rationale portion of this note. 11/15/24 11:34 11/15/24 11:34 Labs: Lab Results 11/15/24 Range/Units 11:34 WBC 5.9 (4.8-10.8) X10*3/uL RBC 4.39 (4.20-5.50) X10*6/uL Hgb 14.3 (12.0-16.0) g/dl Hct 43.5 (37.0-47.0) % MCV 99.1 H (80.0-98.0) fL MCH 32.6 (27.0-33.0) pg MCHC 32.9 (31.0-35.0) g/dl RDW 12.4 (11.0-16.0) % Plt Count 231 (160-400) X10*3/uL MPV 9.1 L (9.4-12.3) fL Immature Gran % (Auto) 0.3 (0.0-0.4) % Neut % (Auto) 57.5 (45-73) % Lymph % (Auto) 32.3 (20-40) % [place] % (Auto) 7.5 (2-11) % Eos % (Auto) 1.7 (0-4) % Baso % (Auto) 0.7 (0-2) % Lymph # (Auto) 1.9 (1.2-4.9) X10*3/uL [place] # (Auto) 0.4 (0.1-1.2) X10*3/uL Eos # (Auto) 0.1 (0.0-0.4) X10*3/uL Baso # (Auto) 0.0 (0.0-0.2) X10*3/uL Abs Immat Gran (auto) 0.02 (0.00-0.03) X10*3/uL Absolute Neuts (auto) 3.4 (2.0-8.3) x10*3/uL Absolute Nucleated RBC 0.000 (0.0-0.012) X10*3/uL Nucleated RBC % (auto) 0.0 (0.0-0.2) /100WBC Sodium 140 (135-145) mmol/L Potassium 3.9 (3.3-5.1) mmol/L Chloride 107 (96-108) mmol/L Carbon Dioxide 27 (22-29) mmol/L Anion Gap 10 L (12-20) BUN 10 (9-16) mg/dL Creatinine 0.80 (0.5-1.4) mg/dL Estim Creat Clear Calc 78.4 Estimated GFR > 60 Random Glucose 139 H (60-115) mg/dL Calcium 9.4 D (8.4-10.2) mg/dL Total Bilirubin 0.3 (0.0-1.0) mg/dL AST 32 H (5-31) U/L ALT 14 (0-31) U/L Alkaline Phosphatase 106 (39-117) U/L Total Protein 7.1 (6.5-8.0) g/dL Albumin 4.0 (3.5-5.0) g/dL Independent Interpretation I performed an independent interpretation of an: EKG Interpretation: Vent. Rate: 089 BPM Atrial Rate: 089 BPM P-R Int: 152 ms QRS Dur: 124 ms QT Int: 388 ms P-R-T Axes: 072 -48 098 degrees QTc Int: 472 ms Normal sinus rhythm Possible Left atrial enlargement Left axis deviation Left bundle branch block When compared with ECG of 05-NOV-2024 15:52, Criteria for Anteroseptal infarct are no longer Present DD/ [id number] Chronic Conditions Patient?s care impacted by: Hypertension Discharge Plan Discharge Clinical Impression: Dizziness Patient Disposition: Home, Self-Care Instructions: Vertigo (DC), Dizziness (ED) Additional Instructions: Your work up is most consistent with vertigo. However, you should still follow up with a wire coating operator metal as your primary care provider recommended. Follow up with your primary care provider. Return to the emergency department immediately if your symptoms worsen or if you develop any dizziness, shortness of breath, difficulty breathing, chest pain, blurry vision, loss of vision, nausea, vomiting, abdominal pain, fever, chills, back pain, or any other complaints. Prescriptions: New meclizine 25 mg tablet 25 mg PO DAILY PRN (Reason: dizziness) Qty: 7 0RF No Action albuterol sulfate 90 mcg/actuation HFA aerosol inhaler 2 puff PO Q6H PRN (Reason: Wheezing) Qty: 8.5 0RF Trelegy Ellipta 100-62.5-25 mcg blister with device 1 inh inhalation DAILY Qty: 60 5RF lidocaine HCl [Aspercreme (lidocaine HCl)] 4 % cream 1 appl topical BID PRN (Reason: pain) Qty: 120 0RF doxycycline hyclate 100 mg capsule 100 mg PO BID 7 Days Qty: 14 0RF nystatin 100,000 unit/gram powder 1 appl topical BID Qty: 60 4RF atorvastatin 40 mg tablet 40 mg PO DAILY Qty: 90 3RF lisinopril 5 mg tablet 5 mg PO DAILY Qty: 90 3RF Referrals: Garima Bartlett MD [Primary Care Provider] - Interventions: ED Discharge Assessment Last Done: 11/15/24 16:23 Discharge Date/Time: 11/15/24 16:23 Print Language: [place]an
[2024-11-15 16:23] VITALS: BP 130/72; PULSE 67; RESP 20; TEMP 36.6; O2SAT 99
== END 2024-11-15 16:23 | disposition home or self-care (01) ==
PROVIDERS: Emergency Provider Emergency Medicine Emergency Medical Services; PCP Family Medicine
DX: R42 Dizziness and giddiness (principal); R29.700 NIHSS score 0; I10 Essential (primary) hypertension; E78.5 Hyperlipidemia, unspecified; J44.9 Chronic obstructive pulmonary disease, unspecified; Z79.02 Long term (current) use of antithrombotics/antiplatelets; Z79.899 Other long term (current) drug therapy
CPT/HCPCS: 36415; 80053; 85025; 93005; 99283; 99284

== ENCOUNTER → 2024-11-15 11:27 | Outpatient (BNV) | payer OTHER, SELFPAY | PROVIDERS: Emergency Provider Emergency Medicine Emergency Medical Services; PCP Family Medicine; Visit Provider Internal Medicine | DX: R42 Dizziness and giddiness (principal); I44.7 Left bundle-branch block, unspecified; R94.31 Abnormal electrocardiogram [ECG] [EKG] | CPT/HCPCS: 93010 ==

== ENCOUNTER 2024-12-14 11:40 | Emergency (ER) | payer OTHER, SELFPAY ==
--- NOTE | ~2024-12-14 | XR_ITS ---
EXAMINATION: XR CHEST CLINICAL INFORMATION: Chest pain, dizziness COMPARISON: November 05, 2024 TECHNIQUE: 2 views of the chest were obtained. FINDINGS: No consolidation pleural effusion or pneumothorax. Cardiomediastinal silhouette is normal. Calcified plaque thoracic aortic arch. Mild multilevel thoracic spondylosis. XR/XR chest 2V IMPRESSION: No acute airspace disease. Electronically signed by: Erik Acosta MD 12/14/2024 12:21 PM EST
--- NOTE | 2024-12-14 11:49 | ECG_ITS ---
Test Reason : CP Blood Pressure : */* mmHG Vent. Rate : 83 BPM Atrial Rate : 83 BPM P-R Int : 152 ms QRS Dur : 124 ms QT Int : 384 ms P-R-T Axes : 69 -50 89 degrees QTcB Int : 451 ms Normal sinus rhythm Possible Left atrial enlargement Left axis deviation Left bundle branch block Abnormal ECG When compared with ECG of 15-Nov-2024 11:27, No significant change was found Referred By: Generic ED Physician Electronically Signed By: Garrick Juan
[2024-12-14 12:03] VITALS: BP 138/66; PULSE 74; RESP 16; TEMP 36.5; O2SAT 96; BMI 32.3
[2024-12-14 12:08] LABS: MANUAL DIFF FLAG NO
[2024-12-14 12:10] LABS: Basophils Absolute Auto 0.1 X10*3/uL (0.0-0.2); Basophils Percent Auto 0.8 % (0-2); Eosinophils Absolute Auto 0.1 X10*3/uL (0.0-0.4); Eosinophils Percent Auto 2.1 % (0-4); Hematocrit 43.4 % (37.0-47.0); Hemoglobin 14.3 g/dl (12.0-16.0); Imm Gran Abs Auto 0.01 X10*3/uL (0.00-0.03); Imm Gran Pct Auto 0.2 % (0.0-0.4); Lymphocytes Absolute Auto 2.1 X10*3/uL (1.2-4.9); Lymphocytes Percent Auto 33.1 % (20-40); Mean Corpuscular HGB Conc 32.9 g/dl (31.0-35.0); Mean Corpuscular Hemoglobin 32.7 pg (27.0-33.0); Mean Corpuscular Volume 99.3 fL (80.0-98.0); Mean Platelet Volume 9.3 fL (9.4-12.3); Monocytes Absolute Auto 0.8 X10*3/uL (0.1-1.2); Monocytes Percent Auto 13.2 % (2-11); Neutrophils Absolute Auto 3.2 x10*3/uL (2.0-8.3); Neutrophils Percent Auto 50.6 % (45-73); Platelet Count 236 X10*3/uL (160-400); Red Blood Count 4.37 X10*6/uL (4.20-5.50); Red Cell Distribution Width 12.7 % (11.0-16.0); White Blood Count 6.3 X10*3/uL (4.8-10.8)
[2024-12-14 12:20] LABS: Prothrombin Time 11.6 SEC (10.9-12.4)
[2024-12-14 12:28] LABS: Alanine Aminotransferase 21 U/L (0-31); Albumin Level 4.2 g/dL (3.5-5.0); Alkaline Phosphatase 93 U/L (39-117); Anion Gap 15 (12-20); Aspartate Amino Transferase 38 U/L (5-31); Bilirubin Total 0.3 mg/dL (0.0-1.0); Blood Urea Nitrogen 10 mg/dL (9-16); Calcium 9.6 mg/dL (8.4-10.2); Carbon Dioxide 25 mmol/L (22-29); Chloride 106 mmol/L (96-108); Creatinine Clr Calc Pharmacy 89.2; Estimated Glomerular Filt Rate > 60; Glucose Random 68 mg/dL (60-115); Potassium 4.4 mmol/L (3.3-5.1); Sodium 142 mmol/L (135-145); Total Protein 7.5 g/dL (6.5-8.0)
[2024-12-14 12:40] LABS: Troponin-I High Sensitivity < 2.7 ng/L (<3.5-17.0)
--- NOTE | 2024-12-14 12:44 | ED_ITS ---
HPI - Arrhythmia/Palpitations General Chief Complaint: Arrhythmia/Palpitations Stated Complaint: Heart palpitations, lightheaded Time Seen by Provider: 12/14/24 18:44 Related Data Previous Rx's ?Medication ?Instructions ?Recorded lidocaine HCl 4 % topical cream 1 appl topical BID PRN pain #120 07/22/21 (Aspercreme (lidocaine HCl)) grams atorvastatin 40 mg tablet 40 mg PO DAILY #90 tabs 03/28/22 lisinopril 5 mg tablet 5 mg PO DAILY #90 tabs 03/28/22 nystatin 100,000 unit/gram topical 1 appl topical BID #60 grams 03/28/22 powder albuterol sulfate 90 mcg/actuation 2 puff PO Q6H PRN Wheezing #8.5 06/03/22 aerosol inhaler grams fluticasone fur. 100 mcg-umeclid 1 inh inhalation DAILY #60 ea 12/05/22 62.5 mcg-vilant 25 mcg inhalat.powder (Trelegy Ellipta) doxycycline hyclate 100 mg capsule 100 mg PO BID cough 7 days #14 caps 02/09/23 meclizine 25 mg tablet 25 mg PO DAILY PRN dizziness #7 11/15/24 tabs Allergies Allergy/AdvReac Type Severity Reaction Status Date / Time Sulfa (Sulfonamide Allergy Intermediate HIVES Verified 12/14/24 12:08 Antibiotics) [SULFA (SULFONAMIDE ANTIBIOTICS)] [facility] Past Medical History Medical History HTN (hypertension) Hyperlipidemia Asthma COPD (chronic obstructive pulmonary disease) Nicotine dependence, cigarettes, uncomplicated Microhematuria Urinary incontinence Obese Pap smear abnormality of cervix with ASCUS favoring benign Mammogram normal Surgical History Hx of benign breast biopsy (~2005) Hx of tubal ligation Hx of colonoscopy Family History Family History Father COPD (chronic obstructive pulmonary disease) Mother HTN (hypertension) Diabetes Social History Social History Housing: House Alcohol intake: never Patient Tobacco Use Status: Current everyday Tobacco user Cigarette Packs Per Day: 0.75 Cigarettes Per Day: 15.0 Years Smoked: 44 (onset 11) e-Cigarette/Vaping Use: Never Used Advance Directives: No Advance Directives Information Provided: No service: No Current occupational status: employed Cognitive needs: No Hearing needs: No Vision needs: No Physical Exam 2 Vital Signs: Vital Signs: Last Vital Signs Temp 97.7 F 12/14/24 12:03 Pulse 74 12/14/24 12:03 Resp 16 12/14/24 12:03 BP 138/66 12/14/24 12:03 Pulse Ox 96 12/14/24 12:03 O2 Del Method Room Air 12/14/24 12:03 BMI result Body Mass Index 32.3 Course Course Course Narrative: This is a Rapid Medical Examination (RME) performed by Padilla Bar PA-C in triage. Full HPI, ROS, assessment and treatment plan per primary provider in the Main ED. 59 yo female here for eval of palpitations and dizziness x2 months. palpitations worsening since 9AM today. previous abdnormal ekg , has f/u w/ cards in February. recent UTI - admits to sinus pressure, productive cough. current tobacco smoker. deneis sore throat, fevers. took 2 Sudafed this morning prior to worsening palpitations. Plan: labs, ekg, viral swabs, CXR Reevaluation(s) Reevaluation #1: Patient left the emergency department before myself or any of the other clinicians could review or explain physical exam findings, test results, need or lack there of for additional testing, treatment options, or a treatment plan. Medical Decision Making Lab Data 12/14/24 11:58 12/14/24 11:58 Labs: Lab Results 12/14/24 Range/Units 11:58 WBC 6.3 (4.8-10.8) X10*3/uL RBC 4.37 (4.20-5.50) X10*6/uL Hgb 14.3 (12.0-16.0) g/dl Hct 43.4 (37.0-47.0) % MCV 99.3 H (80.0-98.0) fL MCH 32.7 (27.0-33.0) pg MCHC 32.9 (31.0-35.0) g/dl RDW 12.7 (11.0-16.0) % Plt Count 236 (160-400) X10*3/uL MPV 9.3 L (9.4-12.3) fL Immature Gran % (Auto) 0.2 (0.0-0.4) % Neut % (Auto) 50.6 (45-73) % Lymph % (Auto) 33.1 (20-40) % [place] % (Auto) 13.2 H (2-11) % Eos % (Auto) 2.1 (0-4) % Baso % (Auto) 0.8 (0-2) % Lymph # (Auto) 2.1 (1.2-4.9) X10*3/uL [place] # (Auto) 0.8 (0.1-1.2) X10*3/uL Eos # (Auto) 0.1 (0.0-0.4) X10*3/uL Baso # (Auto) 0.1 (0.0-0.2) X10*3/uL Abs Immat Gran (auto) 0.01 (0.00-0.03) X10*3/uL Absolute Neuts (auto) 3.2 (2.0-8.3) x10*3/uL Absolute Nucleated RBC 0.000 (0.0-0.012) X10*3/uL Nucleated RBC % (auto) 0.0 (0.0-0.2) /100WBC PT 11.6 (10.9-12.4) SEC INR 1.0 (0.9-1.1) Sodium 142 (135-145) mmol/L Potassium 4.4 (3.3-5.1) mmol/L Chloride 106 (96-108) mmol/L Carbon Dioxide 25 (22-29) mmol/L Anion Gap 15 (12-20) BUN 10 (9-16) mg/dL Creatinine 0.70 (0.5-1.4) mg/dL Estim Creat Clear Calc 89.2 Estimated GFR > 60 Random Glucose 68 (60-115) mg/dL Calcium 9.6 (8.4-10.2) mg/dL Magnesium 2.0 (1.6-2.6) mg/dL Total Bilirubin 0.3 (0.0-1.0) mg/dL AST 38 H (5-31) U/L ALT 21 (0-31) U/L Alkaline Phosphatase 93 (39-117) U/L Troponin I High Sens < 2.7 (<3.5-17.0) ng/L Total Protein 7.5 (6.5-8.0) g/dL Albumin 4.2 (3.5-5.0) g/dL Influenza Type A (PCR) NEGATIVE (Negative) Influenza Type B (PCR) NEGATIVE (Negative) RSV RNA Qual (PCR) NEGATIVE (Negative) SARS-CoV-2 RNA (RT-PCR) NEGATIVE (Negative) Discharge Plan Discharge Clinical Impression: Palpitations Patient Disposition: Left W/O Completing Treatment Prescriptions: No Action albuterol sulfate 90 mcg/actuation HFA aerosol inhaler 2 puff PO Q6H PRN (Reason: Wheezing) Qty: 8.5 0RF Trelegy Ellipta 100-62.5-25 mcg blister with device 1 inh inhalation DAILY Qty: 60 5RF lidocaine HCl [Aspercreme (lidocaine HCl)] 4 % cream 1 appl topical BID PRN (Reason: pain) Qty: 120 0RF doxycycline hyclate 100 mg capsule 100 mg PO BID 7 Days Qty: 14 0RF meclizine 25 mg tablet 25 mg PO DAILY PRN (Reason: dizziness) Qty: 7 0RF nystatin 100,000 unit/gram powder 1 appl topical BID Qty: 60 4RF atorvastatin 40 mg tablet 40 mg PO DAILY Qty: 90 3RF lisinopril 5 mg tablet 5 mg PO DAILY Qty: 90 3RF Discharge Date/Time: 12/14/24 18:44
[2024-12-14 12:46] LABS: Influenza A PCR NEGATIVE (Negative); Influenza B PCR NEGATIVE (Negative); Resp Syncy Virus RNA Qual PCR NEGATIVE (Negative); SARS COV2 PCR INHOUSE NEGATIVE (Negative)
== END 2024-12-14 18:44 | disposition left against medical advice (07) ==
PROVIDERS: Physician Assistant Medical; Emergency Provider Emergency Medicine; PCP Family Medicine
DX: I49.9 Cardiac arrhythmia, unspecified (principal); R00.2 Palpitations; R42 Dizziness and giddiness; R94.31 Abnormal electrocardiogram [ECG] [EKG]; F17.210 Nicotine dependence, cigarettes, uncomplicated; Z03.818 Encounter for observation for suspected exposure to other biological agents ruled out; Z79.899 Other long term (current) drug therapy
CPT/HCPCS: 0241U; 36415; 71046; 80053; 83735; 84484; 85025; 85610; 93005; 99283

== ENCOUNTER → 2024-12-14 11:49 | Outpatient (BNV) | payer OTHER, SELFPAY | PROVIDERS: Emergency Provider Emergency Medicine; PCP Family Medicine; Visit Provider Internal Medicine Cardiovascular Disease | DX: I44.7 Left bundle-branch block, unspecified (principal) | CPT/HCPCS: 93010 ==

== ENCOUNTER → 2024-12-14 11:50 | Outpatient (BNV) | payer OTHER, SELFPAY | PROVIDERS: PCP Family Medicine; Visit Provider Radiology Diagnostic Radiology | DX: R07.9 Chest pain, unspecified (principal); R42 Dizziness and giddiness | CPT/HCPCS: 71046 ==

== ENCOUNTER 2025-02-24 10:51 | Outpatient (AMB) | payer OTHER, SELFPAY ==
--- NOTE | 2025-02-24 10:54 | MHC.OFFVIS ---
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 Accompanied by: Self / Same As Patient Allergies Sulfa (Sulfonamide Antibiotics) [SULFA (SULFONAMIDE ANTIBIOTICS)] Allergy (Intermediate, Verified 12/14/24 12:08) HIVES Medication List - Last Reconciled 02/24/25 by Berhane Olivera MD albuterol sulfate 90 mcg/actuation 2 puffs PO Q6H PRN atorvastatin 40 mg PO DAILY aetqqxnifls-jjeihaylb-bcyxrnik 100-62.5-25 mcg (Trelegy Ellipta) 1 inh inhalation DAILY lidocaine HCl 4% (Aspercreme (lidocaine HCl)) 1 appl topical BID PRN lisinopril 5 mg PO DAILY meclizine 25 mg PO DAILY PRN nystatin 1 appl topical BID HPI Comments Details: The patient is a 59-year-old female presenting with concerns of Left Bundle Branch Block (LBBB) and dizziness. In October, she experienced a severe dizziness episode, initially thought to be related to sinus issues, but with symptoms significant enough to seek medical evaluation. The patient describes the dizziness as resembling vertigo, particularly when performing certain movements. She has not previously been evaluated by a physical chemistry professor, although EKGs have noted the presence of LBBB for years. There is no history of more severe cardiac interventions like myocardial infarction or stent placement. Additionally, the patient experiences brief palpitations characterized by a fluttering sensation in the chest, lasting seconds, with no associated chest pain or respiratory distress. Furthermore, she reports chronic wheezing likely related to her extensive history of smoking. Dyspnea occurs during exertion, particularly when climbing stairs or performing physically demanding household tasks. Hypertension is noted, with no recent medication changes besides a scheduled upcoming evaluation. Exercise The patient does not engage in any structured exercise routine beyond daily activities that include stair climbing, which results in mild dyspnea. FOR[facility]LY [facility] Medical History HTN (hypertension) Hyperlipidemia Asthma COPD (chronic obstructive pulmonary disease) Nicotine dependence, cigarettes, uncomplicated Microhematuria Urinary incontinence Obese Pap smear abnormality of cervix with ASCUS favoring benign Mammogram normal Surgical History Hx of benign breast biopsy (~2005) Hx of tubal ligation Hx of colonoscopy Family History Father COPD (chronic obstructive pulmonary disease) Mother HTN (hypertension) Diabetes Social History Housing: House Alcohol intake: never Patient Tobacco Use Status: Current everyday Tobacco user Cigarette Packs Per Day: 0.75 Cigarettes Per Day: 15.0 Years Smoked: 44 (onset 11) e-Cigarette/Vaping Use: Never Used service: No Current occupational status: employed Cognitive needs: No Hearing needs: No Vision needs: No Review of Systems Const Denies chills, Denies fatigue, Denies fever(s), Denies frequent falls, Denies weakness, Denies weight gain and Denies weight loss ENT Denies dizziness Card Denies chest pain, Denies leg edema, Denies lightheadedness, Reports palpitations, Denies dyspnea, Denies dyspnea on exertion and Denies orthopnea Resp Denies cough, Denies dyspnea and Denies dyspnea on exertion GI Denies bloating and Denies change in bowel habits Musc Denies muscle weakness, Denies numbness and Denies tingling Neuro Denies dizziness, Denies frequent falls, Denies numbness, Denies tingling and Denies weakness Endo Denies fatigue and Reports palpitations Physical Exam Vital Signs: Last Vital Signs Pulse 86 02/24/25 10:57 BP 110/70 02/24/25 10:57 BMI result Body Mass Index 32.5 Const General: comfortable and no acute distress Orientation/consciousness: patient oriented x3 HEENT Other: Unremarkable Head: Yes normal to inspection Neck Neck: Yes normal visual inspection Chest Chest palpation & inspection: normal inspection of the chest Resp Auscultation: wheezes and diminished lung sounds Cardio Palpation: normal PMI Heart sounds: S1 normal heart sound present, S2 normal heart sound present, no gallops, no murmurs and no rubs GI Palpation (GI): Soft to palpation Back/Spine/Pelvis Other: unremarkable Skin General skin exam: no rashes or lesions noted Neuro General: patient oriented x3 Extrem General: Yes normal to inspection Psych Mental Status: mental status grossly normal Office Procedures EKG Details: EKG with sinus rhythm at 86/Min; left bundle-branch block pattern 60535-[id number], Complete Assessment & Plan Assessment & Plan (1) LBBB (left bundle branch block): Code(s): I44.7 - Left bundle-branch block, unspecified Category: Medical Plan The dizziness/syncopal episode could be rather vertigo and less likely cardiac. With regard to the left bundle-branch block itself, get an echocardiogram for any cardiomyopathy. With a history of smoking, we will also get coronary CTA to assess for underlying CAD. Smoking cessation discussed. We will follow up on the testing is completed. Discussion Notes I discussed with the patient the presence of Left Bundle Branch Block (LBBB) and its implications on cardiac function. We reviewed the necessity of performing a cardiac ultrasound and a CT scan to rule out structural heart abnormalities and coronary artery blockages. The potential diagnosis of vertigo versus other causes for her dizziness episodes was considered, with no current symptoms reported. Smoking cessation was urged due to its contribution to pulmonary wheezing and overall cardiorespiratory health. We discussed possible escalation of heart palpitations and the potential for Holter monitoring if required. The patient confirmed no known allergies to contrast dyes, facilitating the CT scan. Follow-up coordination around her scheduled routine evaluation for hypertension was anticipated to ensure continuity of care. Patient was informed and verbally consented to the use of an ambient scribe for clinic note documentation during this visit. Orders: Orders Basic Metabolic Panel Today I44.7 - Left bundle-branch block, unspecified CA echo transthoracic complete Today I44.7 - Left bundle-branch block, unspecified CT Cardiac Coronary Angio Today I44.7 - Left bundle-branch block, unspecified Patient Instructions: - Schedule and complete the cardiac ultrasound and CT scan as discussed. - Avoid smoking as much as possible to help improve your breathing. - If you experience increased dizziness or palpitations that last longer than a few seconds, seek medical attention. - If you notice any changes in your symptoms, or have new or worsening symptoms, contact the medical team. Coding Level of Care Code New Pt Level 4 (69166) Complex EM visit Add On G2211 Diagnoses LBBB (left bundle branch block) I44.7 CPT Codes EKG - CPT: 05313-[id number], Complete ([id number])
[2025-02-24 10:57] VITALS: BP 110/70; PULSE 86; BMI 32.5
== END 2025-02-24 11:22 | disposition home or self-care (01) ==
LOC: HO.HCS 10:52
PROVIDERS: PCP Family Medicine; Visit Provider Internal Medicine
DX: I44.7 Left bundle-branch block, unspecified (principal); R94.31 Abnormal electrocardiogram [ECG] [EKG]
CPT/HCPCS: 93010; 99214

== ENCOUNTER → 2025-02-24 10:51 | Outpatient (BNVA) | payer OTHER, SELFPAY | PROVIDERS: PCP Family Medicine; Visit Provider Internal Medicine | DX: I44.7 Left bundle-branch block, unspecified (principal); F17.210 Nicotine dependence, cigarettes, uncomplicated | CPT/HCPCS: 93005; 99212 ==

== ENCOUNTER → 2025-03-28 09:08 | Outpatient (REF) | payer OTHER, SELFPAY ==
--- NOTE | 2025-03-28 09:12 | CA_ITS ---
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 The visually estimated ejection fraction is between 50-55%. - There is moderate septal asymmetric hypertrophy. - No obvious valvular pathology seen on this study. Findings Procedure Information The patient declines contrast. Left Ventricle Normal left ventricular cavity size. The left ventricular systolic function is low normal. The visually estimated ejection fraction is between 50-55%. There is paradoxical septal motion consistent with a left bundle branch block. Diastolic function is normal for age. There is moderate septal asymmetric hypertrophy. Right Ventricle Normal right ventricular cavity size and systolic function. Atria Both atria are normal in size. Aortic Valve There is a normal trileaflet aortic valve. There is no aortic valve stenosis. There is no aortic valve regurgitation. Mitral Valve The mitral valve appears normal. There is no mitral valve regurgitation. There is no mitral valve stenosis. Pulmonic Valve The pulmonic valve is likely normal. Tricuspid Valve There is trace tricuspid valve regurgitation. There is no evidence of pulmonary hypertension. Great Vessels The asc aorta is normal in size. Venous The inferior vena cava is normal in size and collapses greater than 50% with inspiration. Pericardium/Pleural There is no evidence of pericardial effusion. Prior Study Comparison No prior study available for comparison. Recommendations, Care & Conclusions No obvious valvular pathology seen on this study. Measurements 2D Linear Measurements IVSd: 1.32 0.6-0.9/0.6-1.0 cm LVIDd: 4.17 3.9-5.3/4.2-5.9 cm LVIDd Index: 2.18 2.4-3.2/2.2-3.1 cm/m2 LVIDs: 3.33 2.0-3.6 cm LVPWd: 0.73 0.7-1.1 cm LA Diam: 3.10 2.7-3.8/3.0-4.0 cm LAIDs Index: 1.62 1.5-2.3 cm/m2 LV Mass: 175.10 67-162/88-224 g LV Mass Index: 91.67 43-95/49-115 g/m2 LVOT Diam: 2.00 3.0+(-)1.3 cm 2D Systolic Function EF 4C: 54.80 >55% EF 2C: 62.50 >55% EF BiP: 59.40 >55% Mitral Valve MV Pk E: 0.67 MV PK A: 0.83 MV Decel Time: 161.00 E/A: 0.80 E'Lateral: 7.62 E'Medial: 6.74 E/E' Med: 9.90 E/E' Lat: 8.80 PHT: 47.00 MVA PHT: 4.68 Decel Christian: 4.16 Aortic Valve AoV Pk Farhan: 1.53 AoV Mn Farhan: 1.04 AoV VTI: 0.32 AoV Pk Grad: 9.00 Aov Mn Grad: 5.00 JOCELYNN Cont.VTI: 2.13 LVOT LVOT Pk Farhan: 1.10 LVOT Mn Farhan: 0.76 LVOT VTI: 0.22 LVOT Pk Grad: 5.00 LVOT Mn Grad: 3.00 LVOT Diam: 2.00 LVOT Area: 3.14 Diastolic Function MV Pk E: 0.67 MV Pk A: 0.83 E/A: 0.80 E'Medial: 6.74 E/E' Med: 9.90 E' Laterial: 7.62 E/E' Lat: 8.80 Right Ventricle TAPSE (mm): 22.20 TVS' Farhan: 9.79 Tricuspid Valve TR Pk Farhan: 1.74 TR Pk Grad: 12.00 RA Press: 3.00 RVSP: 15.00 Great Vessels Aorta Ao Asc: 2.70 2.1-3.4 cm Updated in Other Vendor System with Status of Final Berhane Olivera MD electronically signed on 03/28/2025 10:55:44 AM with status of Final
== END ==
LOC: HO.CARD 09:08
PROVIDERS: PCP Family Medicine; Visit Provider Internal Medicine
DX: I44.7 Left bundle-branch block, unspecified (principal)
CPT/HCPCS: 93306; Q9957

== ENCOUNTER → 2025-03-28 09:12 | Outpatient (BNV) | payer OTHER, SELFPAY | PROVIDERS: PCP Family Medicine; Visit Provider Internal Medicine | DX: I42.2 Other hypertrophic cardiomyopathy (principal) | CPT/HCPCS: 93306 ==

== ENCOUNTER 2025-04-21 09:30 | Outpatient (REF) | payer OTHER, SELFPAY ==
[2025-04-21 10:45] LABS: Anion Gap 12 (12-20); Blood Urea Nitrogen 9 mg/dL (9-16); Calcium 9.4 mg/dL (8.4-10.2); Carbon Dioxide 28 mmol/L (22-29); Chloride 105 mmol/L (96-108); Estimated Glomerular Filt Rate > 60; Glucose Random 90 mg/dL (60-115); Potassium 4.5 mmol/L (3.3-5.1); Sodium 140 mmol/L (135-145)
== END 2025-04-21 09:31 | disposition home or self-care (01) ==
LOC: HO.LAB 09:30
PROVIDERS: PCP Family Medicine; Visit Provider Internal Medicine
DX: I44.7 Left bundle-branch block, unspecified (principal)
CPT/HCPCS: 36415; 80048

== ENCOUNTER 2025-05-27 09:50 | Outpatient (AMB) | payer OTHER, SELFPAY ==
--- OUTSIDE RECORDS SUMMARY | 2025-05-27 10:02 | XMS_ITS | Patient Health Record ---
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 Name Role Phone Susan Gusman MD Primary Care Provider Zane Crews [phone] Allergies Allergen (clinical drug ingredient) Drug/Non Drug Allergy documented on EMR Reaction Allergy Type Onset Date Status Sulfa Unknown Drug Allergy Active Reason For Referral No Information Medications Medication SIG (Take, Route, Frequency, Duration) Notes Start Date End Date Status ProAir HFA 108 (90 Base) MCG/ACT INHALE 2 PUFFS BY MOUTH 3 TIMES A DAY NEEDED Inhalation for 90 Active ibuprofen 1 tab Oral PRN Active Lisinopril 2.5 MG TAKE 1 TABLET EVERY DAY Oral for 90 Active Flovent HFA 110 MCG/ACT INHALE 1 PUFF TW ICE A DAY Inhalation for 30 Active Simvastatin 40 MG TAKE 1 TABLET BY RYAN TH ONCE DAILY Oral for 90 Active Anoro Ellipta 62.5-25 MCG/INH INHALE 1 PUFF EVERY DAY Inhalation for 90 Active Immunizations Vaccine Route Administration Date Status Comme nts Influenza Unknown 07/25/2020 Administered Problems Problem Type SNOMED Code ICD Code Onset Dates Problem Status W/U Status Risk Notes Problem 037694824 Encounter for screening for malignant neoplasm of colon (Z12.11) Active confirmed Problem [id number] Preprocedural examination (Z01.818) Active confirmed Problem 405350450 Hx of adenomatou s colonic polyps (Z86.010) Active confirmed Plan Of Treatment Future Test Test Name Order Date COLONOSCOPY 07/06/2014 COLONOSCOPY 08/09/2020 Next Appt Details Provider Name:Zane Reese , 09/27/2025 09:50:00 AM, [address], [address], [place], [address], Insurance Providers Payer Name Payer Address Payer Phone Subscriber Number Group Number Insured Name Patient Relationship to Insured Coverage Start Date Coverage End Date [facility] (REFERRA L NEEDED) [address] [place] [address] [id number] CHRIS TAMAYO Self - patient is the insured Medical (General) History Medical History History ICD Code Denies GA,DM,CVA,renal disease HTN Asthma Hyperlipidemia UGI in 02/2013-small HH Urinary incontinence Colonoscopy in 2013 with a s mall sigmoid colon tubular adenoma removed and a hyperplastic polyp on the Ileocecal Valve Surgical History Surgery Date(Month/Year) Tubal ligation Breast biopsy--benign cyst
--- OUTSIDE RECORDS SUMMARY | 2025-05-27 10:02 | XMS_ITS | Clinical Summary ---
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 100 g 1 3 Active ibuprofen (ADVIL,MOTRIN) 600 MG tabletIndications: Acute bilateral low back pain without sciatica Take 1 tablet (600 mg total) by mouth every 6 (six) hours as needed for pain (specific location in comments) (low back). 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 28 patch 3 3 Active nystatin (NYSTOP) powderIndications: Candidal intertrigo Apply topically 4 (four) times a day. 30 g 11 3 Active buPROPion (WELLBUTRIN XL) 150 MG ER 24 hr tablet Take 1 tablet (150 mg total) by mouth daily. 90 tablet 3 5 Active lisinopril (PRINIVIL,ZESTRIL) 5 MG tabletIndications: Essential hypertension Take 1 tablet (5 mg total) by mouth every morning. 90 tablet 3 5 Active atorvastatin (LIPITOR) 40 MG tabletIndications: Other hyperlipidemia Take 1 tablet (40 mg total) by mouth every morning. 90 tablet 3 5 Active TRELEGY ELLIPTA 100-62.5-25 mcg inhalation powder Inhale 1 puff into the lungs daily. 60 each 11 5 Active levalbuterol (XOPENEX HFA) 45 mcg/actuation inhalerIndications :Chronic obstructive pulmonary disease, unspecified COPD type Inhale 2 puffs into the lungs every 6 (six) hours as needed for wheezing. 15 g 6 5 Active albuterol 90 mcg/actuation inhaler Inhale 2 puffs into the lungs every 6 (six) hours as needed for wheezing. 8 g 1 5 Active Active Problems Problem Noted Date Diagnosed Date Sacroiliac joint dysfunction of both sides 02/17 Assessment & Plan (07/07/2023 2:25 PM EDT): F/u with Dr Amaral as planned Class 1 obesity with serious comorbidity and body mass index (BMI) of 34.0 to 34.9 in adult 08/30/2022 Tobacco use disorder 08/30/2022 Assessment & Plan (04/08/2025 5:50 AM EDT): Cont working on cutting back Assessment & Plan (10/29/2023 1:31 PM EST): Working on quitting, encouraged in this goal. Assessment & Plan (02/18/2023 11:11 PM EDT): Continue working on cutting back. Encouraged to re-try patches at some point in the future. Assessment & Plan (12/23/2022 12:36 PM EST): Motivated to quit but not very confident given stressors. Encouraged to pick a specific quit date and start welbutrin one week before then. Recommend cold turkey approach. Enlist family as able. Assessment & Plan (08/30/2022 11:45 AM EDT): Discussed motivators for quitting and reasons for smoking. Encouraged to find alternative for hand occupation. To start rec using patches after first cigarette of morning. Once having success other than that cigarette, move to using patches overnight to eliminate need for am cigarette. Essential hypertension 08/30/2022 Assessment & Plan (04/08/2025 5:50 AM EDT): Well controlled, cont current meds Orders: lisinopril (PRINIVIL,ZESTRIL) 5 MG tablet; Take 1 tablet (5 mg total) by mouth every morning. Assessment & Plan (10/29/2023 1:29 PM EST): Well controlled, cont current meds Assessment & Plan (07/07/2023 2:24 PM EDT): Well controlled, cont current meds Assessment & Plan (12/23/2022 12:34 PM EST): Well controlled, cont current meds Assessment & Plan (08/30/2022 11:43 AM EDT): Well controlled, cont current meds Other hyperlipidemia 08/30/2022 Assessment & Plan (04/08/2025 5:50 AM EDT): Due Orders: atorvastatin (LIPITOR) 40 MG tablet; Take 1 tablet (40 mg total) by mouth every morning. Lipid panel; Future Assessment & Plan (10/29/2023 1:30 PM EST): Due for monitoring, cont lipitor 40mg Assessment & Plan (12/23/2022 12:34 PM EST): Well controlled, cont current meds Assessment & Plan (08/30/2022 11:43 AM EDT): Due for labs, cont statin Chronic obstructive pulmonary disease 08/30/2022 Overview (08/30/2022): Presumed based on symptoms and cigarette history Assessment & Plan (10/29/2023 1:29 PM EST): Well controlled, cont current meds Encouraged in her goal to quit smoking Assessment & Plan (07/07/2023 2:24 PM EDT): Well controlled, cont current meds Assessment & Plan (02/18/2023 11:10 PM EDT): Lungs clear on exam today. Assessment & Plan (12/23/2022 12:34 PM EST): Well controlled, cont current meds Assessment & Plan (08/30/2022 11:46 AM EDT): On trelegy and PRN albuterol History of recurrent miscarriages 08/30/2022 Overview (08/30/2022): 20 wk loss, term IUFD due to placental abruption, evidence of similar on monitoring leading to early delivery of two living children No h/o preeclampsia Assessment & Plan (08/30/2022 11:49 AM EDT): This history is suggestive of a pro-thrombotic disorder but no other family history or personal history of blood clots. Encounters Date Type Department Care Team Description 05/21/2025 Refill [facility] [address] [place] [address] Garima Bartlett MD, MPH Medication Refill 04/22/2025 Orders Only [facility] [address] [place] [address] ProviderTal MD 04/15/2025 Telephone [facility] [address] [place] [address] Garima Bartlett MD, MPH Medication Question 03/23/2025 Refill [facility] [address] [place] [address] Radha Carson MA Medication Refill 03/18/2025 Refill [facility] [address] [place] [address] Dr [address] [place] [address] Summer Daniel MA Medication Refill 03/17/[address] [place] [address] Garima Bartlett MD, MPH UNSIGNED NOTES 03/09/2025 1:00 PM EDT Office Visit [address] [place] [address] Garima Bartlett MD, MPH Annual physical exam (Primary Dx); Essential hypertension; Other hyperlipidemia; Cigarette smoker; Tobacco use disorder; Lower urinary tract symptoms (LUTS) 03/04/[address] [place] [address] Garima Bartlett MD, MPH Referral from Last 3 Months Immunizations Immunization Administration Dates Next Due Influenza Quadrivalent MDCK Preservative Free IM 09/10/2023 Influenza Quadrivalent Prese rvative Free IM 08/28/2022,11/12/2021,07/25/2020,2018 Influenza Quadrivalent w/ Preservative IM 09/21/2018 Influenza Trivalent MDCK Pre servative Free IM 10/15/2024 Influenza Trivalent w/ Prese rvative IM 11/19/2012 Pneumococcal conjugate PCV20 10/29/2023 Tdap 03/09/2025 Family History Medical History Relation Comments Hypothyroidism Brother 1 Thyroid disease Brother 1 had it removed, gained a lot of weight Cerebral aneurysm Brother 3 Alcohol use disorder Brother 4 Coronary artery disease Brother 4 COPD Father Coronary artery disease Mother Diabetes Mother Hypertension Mother Hyperthyroidism Mother thyroid removed Anxiety disorder Son 1 Breast cancer Neg Hx Colon cancer Neg Hx Stroke Neg Hx Relation Status Comments Brother 1 Alive Brother 2 Alive Brother 3 Brother 4 (Age 56) Father (Age 55) Mother (Age 69) Son 1 Alive Son 2 Alive Social History Tobacco Use Types Packs/Day Years Used Date Smoking Tobacco: Every Day Cigarettes 0.8 40 Smokeless Tobacco: Never Tobacco Cessation:Ready to Q uit: Not Asked; Counseling Given: Not Answered Alcohol Use Standard Drinks/Week Comments Never 0 (1 standard drink = 0.6 oz pur e alcohol) Child or Family Care Answer Date Record ed Do you have problems with on e of the following making it difficult for you to work, study, or receive health care? No 03/09/2025 Education Answer Date Recorded Are you interested in help w ith more adult education (for example, completing high school, GED, job training, learning the [place] language, technical skills, or developing parenting skills)? No 03/09/2025 Are you concerned about learning? Not on file 03/09/2025 No 03/09/2025 Yes 03/09/2025 Food Answer Date Recorded Within the past 6 months we worried whether our food would run out before we got money to buy more. Never True 03/09/2025 Within the past 6 months the food we bought just didn't last and we didn't have enough money to get more. Never True Residential Stability Answer Date Recor ded What is your housing situation today? I have brendon sing 03/09/2025 How many times have you move d in the past 12 months? Zero (I did not move) 03/09/2025 Paying for Meds Answer Date Recorded Do you have trouble paying for medicines? No 03/09/2025 Paying Utility Bills Answer Date Record ed Do you have trouble paying your heating or elect ricity bill? No 03/09/2025 Transportation Answer Date Recorded Has the lack of transportati on kept you from medical appointments or from getting medications? No 03/09/2025 Digital Access Answer Date Recorded No 03/09/2025 Yes 03/09/2025 Do you have reliable internet access at home? Ye s 03/09/2025 Do you have a device (e.g., phone, tablet, computer) with a working camera? Yes 03/09/2025 Intimate Partner Violence Answer Date R ecorded Denied Basic Needs Not on file 03/09/2025 In the past 12 months have y ou been in a relationship with a person who hurts, threatens, or tries to control you? No 03/09/2025 Worried food would run out Not on file 03/09 In the past 12 months have y ou been in a relationship with a person who hurts, threatens, or tries to control you? No 03/09/2025 Comments Unknown Sex and Gender Information Value Date Recorded Sex Assigned at Female 08/28/2022 3:42 PM EDT Legal Sex Female 3:21 PM EDT Gender Identity Female 08/28/2022 3:42 PM EDT Sexual Orientation Straight 08/28/2022 3: 42 PM EDT Last Filed Vital Signs Vital Sign Reading Time Taken Comments Blood Pressure 122/80 03/09/2025 1:13 PM EDT Pulse 117 03/09/2025 1:13 PM EDT Temperature 36.5 C (97.7 F) 11/08/2024 2:58 PM EST Respiratory Rate 16 12/23/2022 9:09 AM EST Oxygen Saturation 95% 03/09/2025 1:13 PM EDT Inhaled Oxygen Concentration - - Weight 85.7 kg (189 lb) 03/09/2025 1:13 PM EDT Height 164.2 cm (5' 4.65 ) 03/09/2025 1:13 PM ED T Body Mass Index 31.79 03/09/2025 1:13 PM EDT Plan of Treatment Health Maintenance Due Date Last Done Comments HEPATITIS C SCREENING 1981 HIV ONE-TIME SCREENING (18-65 YEARS) 1981 PAP SMEAR 1984 COLOGUARD 2008 COLONOSCOPY 2008 COLORECTAL CANCER SCREENING 2008 FIT TEST 2008 FOBT 2008 SIGMOIDOSCOPY 2008 VIRTUAL COLONOSCOPY 2008 ZOSTER VACCINES (1 of 2) 2013 RSV VACCINE (1 - Risk 60-74 years 1-dose series) 2023 COVID-19 VACCINE ( season) 2024 11/12/2021, 02/14/2021 CREATININE LEVEL 06/01/2025 06/01/2024, , 10/30/2022 POTASSIUM LEVEL 06/01/2025 06/01/2024, 02/08, 10/30/2022 MAMMOGRAM 09/03/2025 09/03/2023 BLOOD PRESSURE 09/08/2025 03/09/2025 DEPRESSION SCREENING 03/09/2026 03/09/2025 LUNG CANCER SCREENING (LDCT Only) 03/09/2026 03/09/2025, 04/19/2024, 10/29/2023, Additional history exists SMOKING Hx and SMOKELESS TOBACCO SCREENING 03/09/2026 03/09/2025 SCREENING FOR DIABETES 06/01/2027 06/01/2024 LIPID PANEL 02/22/2029 02/23/2024, 10/30/2022 Adult Td,Tdap Booster 03/09/2035 03/09/2025 PNEUMOCOCCAL VACCINES (50+ years) Completed 10/29/2023 HEPATITIS A VACCINES Aged Out No long er eligible based on patient's age to complete this topic HIB VACCINES Aged Out No longer eligi ble based on patient's age to complete this topic MENINGOCOCCAL VACCINES (ACWY) Aged Out No longer eligible based on patient's age to complete this topic MENINGOCOCCAL VACCINES (B) Aged Out N o longer eligible based on patient's age to complete this topic Medical Devices Not on file Procedures Procedure Name Priority Date/Time Associated Diagnosis Comments OUTSIDE LAB Routine 04/21/2025 1:[address] CHEST LUNG CANCER SCREENING INITIAL OR ANNUAL Routine 03/09/2025 1:33 PM EDT Cigarette smoker BASIC METABOLIC PANEL Routine 06/01/2024 3:39 PM EDT Brain fog LIPID PANEL Routine 02/23/2024 9:53 AM EDT Other hyperlipidemia HM MAMMOGRAPHY Routine 09/03/2023 from Last 3 Months or Most Recently Relevant to Health Maintenance Results * Outside Lab (04/21/2025 1:37 PM EDT) us Historical Provider LAB BLOOD ORDERABLES Edit ed Result - Final * Basic metabolic panel (06/01/2024 3:39 PM EDT) SODIUM 139 133 - 146 mmol/L [facility] CHLORIDE 103 96 - 108 mmol/L [facility] POTASSIUM 4.7 3.3 - 5.1 mmol/L [facility] CO2 25 21 - 35 mmol/L [facility] BUN 13 6 - 19 mg/dL [facility] CREATININE 0.90 0.5 - 1.5 mg/dL [facility] GLUCOSE 94 70 - 99 mg/dL [facility] CALCIUM 9.2 8.4 - 10.3 mg/dL [facility] EGFR 73 >59 mL/min/1.7 3m2 [facility] Comment:Estimated glomerular filtration rate calculated using the CKD-EPI refit equation. ANION GAP 16 10 - 20 mmol/L [facility] Blood 06/01/2024 3:39 PM EDT 06/01/2024 3:42 PM EDT Garima Batrlett MD, MPH LAB BLOOD ORDERABLES Final Result [address] [address] * LDCT PROCEDURE FOR RESULT ENTRY ONLY (04/19/2024 10:36 AM EDT) Historical Provider HEALTH MAINTENANCE Edited Result - Final * (ABNORMAL) Lipid panel (02/23/2024 9:53 AM EDT) HDL 65 mg/dL [facility] Comment: Interpretation <40 mg/dL: Low HDL cholesterol (major risk factor for CHD) Greater than or equal to 60 mg/dL: High HDL cholesterol ( negative risk factor for CHD) HDL - cholesterol is affected by a number of factors, e.g. smoking, excerise, hormones, sex and age. CHOLESTEROL 184 0 - 240 mg/dL [facility] TRIGLYCERIDES 125 30 - 160 mg/dL [facility] LDL 94 50 - 129 mg/dL [facility] Comment: LDL levels in terms of risk for coronary heart disease: <100 mg/dL: Optimal 100-129 mg/dL: Near or above optimal 130-159 mg/dL: Borderline high 160-189 mg/dL: High >190 mg/dL: Very High CARDIAC RISK RATIO 2.8(L) 3.3 - 4.4 C [facility] Blood 02/23/2024 9:53 AM EDT 02/23/2024 9:56 AM EDT us Garima Bartlett MD, MPH LAB BLOOD ORDERABLES Final Result [address] [address] * MAMMOGRAPHY FOR RESULT ENTRY ONLY (09/03/2023) us Garima Bartlett MD, MPH HEALTH MAINTENANCE F inal Result from Last 3 Months or Most Recently Relevant to Health Maintenance Insurance HEALTH PLAN PLAN FAMILY [employer] PLAN HE[employer]AN FAMILY HEALTH PLAN [facility] FAMILY HEALTH PLAN Care Teams 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 It is not the complete legal health record.[facility]
[2025-05-27 10:24] VITALS: BP 114/72; PULSE 70; BMI 33.8
--- NOTE | 2025-05-27 10:24 | A.OFFVIS_ITS ---
Vital Signs 05/27/25 10:24 Height 5 ft 4 in Weight 197 lb 1.492 oz BMI 33.8 BP 114/72 Blood Pressure Location Lt brachial Position Sitting Pulse 70 Pulse Source Pulse Oximeter Intake Visit Reasons: follow up s/p CTA Newsagent Required: No Allergies Sulfa (Sulfonamide Antibiotics) (SULFA (SULFONAMIDE ANTIBIOTICS)) Allergy (Intermediate, Verified 05/27/25 10:26) HIVES Medication List - Last Reconciled 05/27/25 by Mabel Taylor NP-C albuterol sulfate 90 mcg/actuation 2 puffs PO Q6H PRN atorvastatin 40 mg PO DAILY bupropion HCl XL mg PO DAILY usjtlggxctc-ctwfbawvp-qzjvdfvn 100-62.5-25 mcg (Trelegy Ellipta) 1 inh inhalation DAILY lidocaine HCl 4% (Aspercreme (lidocaine HCl)) 1 appl topical BID PRN lisinopril 5 mg PO DAILY meclizine 25 mg PO DAILY PRN nystatin 1 appl topical BID HPI HPI follow up s/p CTA: Details: Rossy is a 60-year-old female with past medical history of smoking, hypertension, hyperlipidemia, left bundle branch block who recently underwent an echocardiogram and CTA of the coronary arteries and now presents for follow-up. Today she reports that she has been feeling well since her last visit in February. She describes having some heart fluttering back in October but no significant issues with that since then. She has no chest discomfort at rest or with activity. She will have some shortness of breath with exertion but admits to smoking for 40+ years. She currently smokes 1/2-1 pack of cigarettes per day. No PND, orthopnea or edema. No presyncope, syncope, falls. She has had some lightheadedness at times. She reports issues with back pain which can limit her activity. She works at a [employer] with frequent standing and walking. Taking meds as directed. [facility] Medical History HTN (hypertension) Hyperlipidemia Asthma COPD (chronic obstructive pulmonary disease) Nicotine dependence, cigarettes, uncomplicated Microhematuria Urinary incontinence Obese Pap smear abnormality of cervix with ASCUS favoring benign Mammogram normal Surgical History Hx of benign breast biopsy (~2005) Hx of tubal ligation Hx of colonoscopy Family History Father COPD (chronic obstructive pulmonary disease) Mother HTN (hypertension) Diabetes Social History Housing: House Alcohol intake: never Patient Tobacco Use Status: Current everyday Tobacco user Cigarette Packs Per Day: 0.75 Cigarettes Per Day: 15.0 Years Smoked: 42 (onset 11) e-Cigarette/Vaping Use: Never Used service: No Current occupational status: employed Cognitive needs: No Hearing needs: No Vision needs: No Review of Systems Const All systems reviewed & are unremarkable except as noted in HPI and below ENT Denies dizziness Card Denies chest pain, Denies chest pain at rest, Denies chest pain with activity, Denies rapid heart rate, Denies pedal edema, Denies edema, Denies leg edema, Denies lightheadedness, Denies palpitations, Denies dyspnea, Denies dyspnea on exertion and Denies orthopnea Resp Denies cough, Denies dyspnea and Denies dyspnea on exertion GI Denies hematochezia and Denies change in stool character Musc Denies abnormal gait, Denies limited range of motion, Denies muscle cramps, Denies muscle weakness, Denies numbness, Denies radiating pain into limb, Denies stiffness and Denies tingling Neuro Denies abnormal gait, Denies dizziness, Denies numbness and Denies tingling Endo Denies palpitations Physical Exam Vital Signs: Last Vital Signs Pulse 70 05/27/25 10:24 BP 114/72 05/27/25 10:24 BMI result Body Mass Index 33.8 Const General: cooperative, healthy appearing, comfortable and no acute distress Orientation/consciousness: patient oriented x3 Neck Neck: Yes normal visual inspection Resp Effort & Inspection: normal respiratory effort Auscultation: clear to auscultation bilaterally, no crackles, no rales, no rhonchi and no wheezes Cardio Rate: regular rate Rhythm: regular rhythm Heart sounds: S1 normal heart sound present, S2 normal heart sound present, no gallops, no murmurs and no rubs Neuro General: patient oriented x3 Extrem General: Yes normal to inspection and No no pedal edema Psych Appearance: grossly normal Mental Status: mental status grossly normal Speech and movement: Normal speech and movement present Assessment & Plan Assessment & Plan (1) LBBB (left bundle branch block): Code(s): I44.7 - Left bundle-branch block, unspecified Category: Medical Plan: Chronic left bundle branch block. Seen on EKGs as far back as 2018 in our system. Echocardiogram done 03/28/2025 shows EF 50-55%, moderate septal asymmetric hypertrophy, no valve abnormality. CTA of the coronary arteries done 04/28/2025 showing minimal mid to distal LAD stenosis, 1-24%, proximal to mid 2nd OM, 1-24% stenosis. Test results reviewed with her in detail. Diagnosis of mild nonobstructive coronary artery disease reviewed. EF also low-normal which could be related to her left bundle branch block. Informed her will follow with periodic echoes. She is on lisinopril which can help with neurohormonal modulation. She is not fluid overloaded on exam. Signs and symptoms of heart failure and angina reviewed with her. Cardiology follow-up 6 months, sooner if needed. (2) Coronary artery disease: Code(s): I25.10 - Atherosclerotic heart disease of [place] coronary artery without angina pectoris Category: Medical Plan: Minimal nonobstructive coronary artery disease. Recommend she start on daily aspirin 81 mg daily. Continue atorvastatin with ideal LDL goal less than 70. Continue lisinopril for good blood pressure control. (3) Hyperlipidemia: Code(s): E78.5 - Hyperlipidemia, unspecified Category: Medical Plan: [place] LDL goal less than 70. Labs done 03/17/2021 showed LDL 88. She is currently on atorvastatin 40 mg daily. Recommend repeat fasting lipid profile. (4) HTN (hypertension): Code(s): I10 - Essential (primary) hypertension Category: Medical Plan: Well controlled at this time. No med changes made. (5) Nicotine dependence, cigarettes, uncomplicated: Comment: (current smoker, 3/4 ppd x 44yrs, 30pyh) Code(s): F17.210 - Nicotine dependence, cigarettes, uncomplicated Category: Medical Plan: Recommended smoking reduction and eventual cessation. She states understanding and tells me she has patches to use. Plan Time spent on chart review, documentation, interview and assessment Medications: New aspirin 81 mg PO DAILY Coding Level of Care Code Est Pt Level 4 (88676) Complex EM visit Add On G2211 Diagnoses LBBB (left bundle branch block) I44.7 Coronary artery disease I25.10 Hyperlipidemia E78.5 HTN (hypertension) I10 Nicotine dependence, cigarettes, uncomplicated F17.210 Time Spent (min) 28
== END 2025-05-27 10:53 | disposition home or self-care (01) ==
LOC: HO.HCS 09:51
PROVIDERS: PCP Family Medicine; Visit Provider Nurse Practitioner Family
DX: I44.7 Left bundle-branch block, unspecified (principal); I25.10 Atherosclerotic heart disease of native coronary artery without angina pectoris; E78.5 Hyperlipidemia, unspecified; I10 Essential (primary) hypertension; F17.210 Nicotine dependence, cigarettes, uncomplicated
CPT/HCPCS: 99214

== ENCOUNTER → 2025-05-27 09:50 | Outpatient (BNVA) | payer OTHER, SELFPAY | PROVIDERS: PCP Family Medicine; Visit Provider Nurse Practitioner Family | DX: I10 Essential (primary) hypertension (principal); I44.7 Left bundle-branch block, unspecified; I25.10 Atherosclerotic heart disease of native coronary artery without angina pectoris; E78.5 Hyperlipidemia, unspecified; F17.210 Nicotine dependence, cigarettes, uncomplicated; Z98.890 Other specified postprocedural states | CPT/HCPCS: 99212 ==